=== PATIENT | female | born 2000 | race Two or more races ===

== ENCOUNTER 2025-07-22 10:10 | Inpatient (IN) | payer MEDICAID, SELFPAY ==
[2025-07-22] VITALS (8 sets, daily range): BP systolic 98–111; BP diastolic 60–73; PULSE 85–117; RESP 13–99; TEMP 36.6–38.9; O2SAT 95–100; BMI 25.6
--- NOTE | 2025-07-22 10:56 | PD.EDHA ---
ED Headache RME/HPI General Chief Complaint: Headache Stated Complaint: HEADACHE, VOMITING, DOUBLE VISION, WEAK, NECK PAIN Time Seen by Provider: 07/22/25 10:34 Arrival date/time: 07/22/25 10:10 Limitations: no limitations RME / HPI RME / HPI Narrative: DR. ROXANE DESOUZA ED EVALUATION: 24-year-old female with no prior history of migraines presents to the Emergency Department accompanied by her mother for evaluation of a severe throbbing headache ongoing for 6 days. The pain worsens even with minor movements, such as turning in bed. She reports associated nausea, vomiting, double vision, and severe neck pain. The double vision started this morning and is intermittent. She has trialed ibuprofen and migraine medications without relief, with the last dose of ibuprofen taken last night without improvement. She denies cough, runny nose, or recent travel. Her mother recently had COVID. Current medications include sertraline 50 mg and risperidone 50 mg. Related Data Home Medications ?Medication ?Instructions ?Recorded ?Confirmed risperidone 0.5 mg tablet 0.5 mg PO HS 07/23/25 07/23/25 sertraline 50 mg tablet 50 mg PO HS 07/23/25 07/23/25 Allergies Allergy/AdvReac Type Severity Reaction Status Date / Time No Known Allergies Allergy Verified 07/22/25 10:14 Review of Systems Review of Systems Systems Reviewed: All systems reviewed, normal except as documented Past Medical History Social History SMOKING STATUS: Never smoker SUBSTANCE USE: does not use ALCOHOL: Never ED Exam General Limitations: Present no limitations General appearance: Present alert and other (uncomfortable) Head Head exam: Present atraumatic, normocephalic and normal inspection Eye Eye exam: Present normal appearance, PERRL and EOMI ENT ENT exam: Present normal exam, normal oropharynx and mucous membranes moist Neck Neck exam: Present normal inspection, trachea midline and meningismus Chest Chest inspection: Present normal inspection and symmetric chest wall rise Respiratory Respiratory exam: Present normal lung sounds bilaterally Cardiovascular Cardiovascular exam: Present normal rhythm, tachycardia and normal heart sounds Abdominal Exam Abdominal exam: Present soft; Absent distention, tenderness, guarding, rebound or rigidity Extremities Exam Extremities exam: Present normal inspection and full ROM Back Exam Back exam: Present normal inspection and full ROM; Absent tenderness or paraspinal tenderness Neurological Exam Neurological exam: Present alert, oriented X3 and CN II-XII intact Psychiatric Psychiatric exam: Present normal affect Skin Skin exam: Present warm, dry, intact and normal color Course Quality Measures Current suspected stage: sepsis Possible source: unknown Blood cultures ordered: yes Antibiotic ordered: Yes Pertinent labs: 07/22/25 13:30 Lactic Acid 1.6 mMol/L (0.4-2.0) Procalcitonin 0.22 ng/ml (0.0-0.49) 1256: Sepsis alert initiated. Orders made at this time are congruent with ED Adult Sepsis Order List. Re-evaluation is to be completed. 1609: Fluids started. 1639: Sepsis reassessment performed consisting of lab review, vitals, physical exam including auscultation of heart, lungs, and visual evaluation of capillary refills, mucosal membranes and extremities. sepsis Orders Category Date Time Status Bedside Blood Glucose NOW Care 07/22/25 12:59 Completed Bedside COVID-19 Antigen Test NOW Care 07/22/25 11:15 Completed Educational Aid Q4H START 00 Care 07/22/25 12:59 Completed Insert IV NOW Care 07/22/25 12:59 Completed Miscellaneous Nursing Order NOW Care 07/22/25 14:25 Completed Strict Intake and Output Routine Care 07/22/25 12:[address] head/brain wo con Stat Exams 07/22/25 12:46 Completed XR chest 1V SEPSIS PROTOCOL Stat Exams 07/22/25 12:59 Completed Blood Culture (Lab) Stat Lab 07/22/25 13:00 Completed CBC Stat Lab 07/22/25 11:50 Completed CMP [Comprehensive Metabolic Panel] Stat Lab 07/22/25 11:50 Completed CSF Culture and Gram Stain Stat Lab 07/22/25 15:00 Completed Cell Count w Diff, CSF Stat Lab 07/22/25 15:00 Completed Drug Screen,Urine Stat Lab 07/22/25 11:10 Completed Glucose,CSF Stat Lab 07/22/25 15:00 Completed HCG,Qualitative Serum Stat Lab 07/22/25 11:50 Completed HSV-1&2 DNA, QN, CSF* Stat Lab 07/22/25 15:00 Completed Influenza A & B Rapid Panel Stat Lab 07/22/25 12:04 Completed Lactate (Lactic Acid) Stat Lab 07/22/25 13:30 Completed PT [Prothrombin Time with INR] Stat Lab 07/22/25 11:50 Completed Procalcitonin Stat Lab 07/22/25 13:30 Completed Protein Total,CSF Stat Lab 07/22/25 15:00 Completed UA, C/S IF [Urinalysis, C/S if Indicated] Stat Lab 07/22/25 11:10 Completed West Nile Virus (IgG,IgM) CSF Stat Lab 07/22/25 15:00 Completed Acetaminophen Ivpb [Ofirmev Inj] Med 07/22/25 12:05 Discontinued 1,000 mg in 100 ml IV STAT Acetaminophen Tab [Tylenol Tab] Med 07/22/25 11:16 Discontinued 650 mg PO X1 ONE Acyclovir Inj [Zovirax Inj] 600 mg Med 07/22/25 17:15 Discontinued Sodium Chloride 0.9% [Ns] 100 ml IV X1 Metoclopramide Inj [Reglan Inj] Med 07/22/25 11:16 Discontinued 5 mg IVP STAT STA Midazolam Inj [Versed Inj] Med 07/22/25 13:58 Discontinued 0.5 mg IVP X1 ONE Piper/Tazo Inj [Zosyn Inj] 4.5 gm Med 07/22/25 15:34 Discontinued Sodium Chloride 0.9% (Pop) [NS 0.9% mini bag] 100 ml IV X1 Ringers Lactated 1000 ml [Lactated Ringers] 1,000 ml Med 07/22/25 11:16 Discontinued IV 999 mls/hr Vancomycin Pharmacy to Dose Med 07/22/25 15:34 Discontinued 1 each IV STAT PRN Vancomycin/Ns 1 gm Ivpb 200 ml Med 07/22/25 15:45 Discontinued IV X1 cefTRIAXone [Rocephin] 2 gm Med 07/22/25 15:40 Discontinued SODIUM CHLORIDE 0.9% (Popper) [Ns 0.9% (P)] 50 ml IV STAT cefTRIAXone/D5w 1gm IV premix [Rocephin/D5w 1gm IV Med 07/22/25 15:34 Discontinued premix] 1 gm in 50 ml IV STAT EKG (RT) Stat RT 07/22/25 12:59 Draft Oxygen Delivery NOW RT 07/22/25 12:59 Completed Vital Signs Vital signs: Vital Signs Temperature 99.9 F 07/22/25 10:41 Pulse Rate 117 H 07/22/25 10:41 Respiratory Rate 18 07/22/25 10:41 Blood Pressure 107/73 07/22/25 10:41 Pulse Oximetry (%) 95 07/22/25 10:41 Oxygen Delivery Method Room Air 07/22/25 10:41 PROCEDURES: Procedure Comment Procedure Note: Lumbar Puncture Indication: Diagnostic evaluation of persistent headache Consent: Risks, benefits, and alternatives of lumbar puncture were discussed with the patient?s mother and daughter, including risk of bleeding, infection, post-LP headache, and pain. They verbalized understanding, were in agreement with the procedure, and signed consent. Procedure: The patient was placed in the lateral decubitus position. Standard sterile precautions were taken, including use of sterile gloves, mask, and drape. The lumbar area was prepped with antiseptic solution and draped in sterile fashion. Local anesthesia was achieved with infiltration of lidocaine. A spinal needle was introduced into the L4-L5 interspace. Findings: 3 cc of clear cerebrospinal fluid was obtained. The procedure was nontraumatic, and there were no immediate complications. Post-Procedure: The patient tolerated the procedure well. Dressing applied to puncture site. Specimens sent to laboratory for analysis. Estimated Blood Loss: None Complications: None Headache MDM Narrative MDM Narrative:: Patient is a 24-year-old female is in emergency room with concerns for 6 days of headache. Vital signs and exam as listed. Patient initially presented tachycardic however afebrile. While in the emergency department patient developed a fever to 102. Sepsis order set ordered. Patient also with neck pain with movement, worse with flexion of her neck concerning for possible intracranial hemorrhage. Ordered labs, CT brain, chest x-ray as well as offered medication for symptom relief. Labs with evidence of leukocytosis 17 , Left shift 94%. Patient with sodium 133, potassium 3.3, chloride 97. Patient received a liter of fluids. Lactic acid normal, no evidence of renal dysfunction, no transaminitis, bilirubin normal. Patient's not . Urinalysis with ketones, leuk esterase positive nitrite -12 squames 3 white blood cells no bacteria patient without dysuria less likely urinary tract infection. Drug screen negative, viral swabs negative for influenza. Chest x-ray unremarkable. Head CT without any acute intracranial abnormalities. EKG performed at 1318 today notable for sinus rhythm, short GA, normal QT, nonspecific T wave changes, not a cardiac alert. Given patient with headache, fever, neck pain and leukocytosis concern the patient may have meningitis. My interpretation: EKG performed at 1318 hours, sinus rhythm, rate 98, normal QT interval, non specific T wave changes, not a cardiac alert 1411: Risks, benefits, and alternatives of lumbar puncture were discussed with the patient?s mother and daughter, including risk of bleeding, infection, post-LP headache, and pain. They verbalized understanding, were in agreement with the procedure, and signed consent. See procedure note under procedures. LP performed w/o complication, patient tolerated procedure very well, throughout the procedure patient was able talk to us about her job . We were only able to obtain 2 tubes of CSF fluid approximately 3 mL. I talked to lab to confirm that our CSF studies could be completed. Provided patient with broad-spectrum antibiotics. CSF clear, colorless, 90 white blood cells, 10 red blood cells, 32% mononuclear cells, 68% PMNs, CSF glucose normal, CSF protein elevated. Concern that patient has viral meningitis. Patient is very somnolent, and believe it is important that she be evaluated by the hospital service. Discussed case with hospitalist Dr. Bardales, kindly accepted patient for admission I, Gris Humphrey, am scribing for and in the presence of Dr. Ballard. Patient data External records reviewed:: [facility] previous records Clinical information provided by:: patient and parent (mother) Social determinants that could affect healthcare access:: none Patient has the following chronic illnesses:: No prior history of migraines. Current medications include sertraline 50 mg and risperidone 50 mg. How is presenting disease/condition affected by chronic disease/condition?: uneffected by Evaluation data The following diagnostics were reviewed and interpreted by me:: lab results, radiology exam(s) and EKG tracing(s) (My interpretation: EKG performed at 1318 hours, sinus rhythm, rate 98, normal QT interval, non specific T wave changes, not a cardiac alert) Lab and/or radiology exams considered but not ordered:: none Interpretation Summary: See MDM narrative above. RADIOLOGY Procedure(s): XR chest 1V SEPSIS PROTOCOL Accession Number(s): [id number] cc: Alek Banda MD; Xochilt Young NP; Meche Ballard MD~ Examination: AP chest single view Technique one AP portable semiupright chest single view Date and time: July 22, 2025, 1308 hrs. Indications: Shortness of breath headache vomiting and weakness today. Findings: Normal heart size Lungs are clear. The osseous structures are intact Impression: No active disease Dictated By: Alek Banda MD Procedure(s): CT head/brain wo con Accession Number(s): [id number] cc: Alek Banda MD; Xochilt Young NP; Meche Ballard MD~ Examination: CT brain head without contrast. 2-D sagittal coronal reconstructions Date and time of exam:July 22, 2025, 1309 hrs., Comparison February 14, 2020 Indications: Headache vomiting dizziness beginning 6 days ago CTDI: vol (mGy):48 DLP: (mGycm):954 Technique: Multiple CT axial sections of the brain have been obtained, 5 mm slice thickness. Contrast has not been administered. 2-D sagittal, coronal reconstructions have been obtained Low dose protocols were performed. One or more of the following dose reduction techniques were used; automated exposure control, adjustment of the mA and/or KV according to patient size, use of iterative reconstruction technique. Findings: No significant ventricular enlargement. Intra-axial or extra-axial hemorrhage density is not seen. No mass effect or midline shift Basal cisterns are not remarkable. Fourth ventricle is midline. Cranial vault intact. Impression: Negative for acute hemorrhage, mass effect or midline shift Advise clinical correlation follow-up accordingly Dictated By: Alek Banda MD Medications / Prescriptions Medications or Prescriptions considered but not ordered:: none Medication administrations:: Medication Administration History Discontinued Medications Acetaminophen (Acetaminophen 325 Mg Tablet) 650 mg PO X1 ONE Stop: 07/22/25 11:17 Last Admin: 07/22/25 12:08 Dose: Not Given Documented By: VRS Non-Admin Reason: Nausea Acetaminophen (Acetaminophen 325 Mg Tablet) 1,000 mg PO Q6HR PRN PRN Reason: Fever >99.9 Stop: 08/21/25 19:17 Acetaminophen (Acetaminophen 325 Mg Tablet) 1,000 mg PO Q6HR PRN PRN Reason: Fever >100.4 and pain Stop: 08/21/25 19:17 Acetaminophen (Acetaminophen 500 Mg Tablet) 1,000 mg PO Q6HR PRN PRN Reason: fever >99.9 or pain 1-5 Stop: 08/22/25 01:13 Last Admin: 07/25/25 17:00 Dose: 1,000 mg Documented By: Admin: 07/25/25 05:55 Dose: 1,000 mg Documented By: Admin: 07/24/25 19:39 Dose: 1,000 mg Documented By: Admin: 07/24/25 12:58 Dose: 1,000 mg Documented By: Admin: 07/24/25 05:56 Dose: 1,000 mg Documented By: Admin: 07/23/25 20:40 Dose: 1,000 mg Documented By: Admin: 07/23/25 07:53 Dose: 1,000 mg Documented By: Admin: 07/23/25 01:19 Dose: 1,000 mg Documented By: STEVE Lactated Ringer's (Lactated Ringers) 1,000 mls @ 999 mls/hr IV .Q1H1M ONE Stop: 07/22/25 12:16 Last Infusion: 07/22/25 17:20 Dose: Infused Documented By: Admin: 07/22/25 11:45 Dose: 999 mls/hr Documented By: SKYLER Acetaminophen (Ofirmev Inj) 1,000 mg in 100 mls @ 250 mls/hr IV STAT STA Stop: 07/22/25 12:28 Last Infusion: 07/22/25 12:43 Dose: Infused Documented By: Admin: 07/22/25 12:14 Dose: 250 mls/hr Documented By: SKYLER Piperacillin Sod/Tazobactam (Sod 4.5 gm/ Sodium Chloride) 100 mls @ 200 mls/hr IV X1 ONE; Protocol Stop: 07/22/25 16:03 Last Admin: 07/22/25 17:19 Dose: Not Given Documented By: VRS Non-Admin Reason: Cancelled by Provider Ceftriaxone Sodium/Dextrose (Rocephin/D5w 1gm Iv Premix) 1 gm in 50 mls @ 100 mls/hr IV STAT STA Stop: 07/22/25 16:03 Last Admin: 07/22/25 17:19 Dose: Not Given Documented By: VRS Non-Admin Reason: Allergy Vancomycin/Sodium Chloride (Vancomycin/Ns 1 Gm Ivpb) 200 mls @ 120 mls/hr IV X1 ONE Stop: 07/22/25 17:24 Last Admin: 07/22/25 17:10 Dose: 120 mls/hr Documented By: DAMI Ceftriaxone Sodium 2 gm/ (Sodium Chloride) 50 mls @ 100 mls/hr IV STAT STA Stop: 07/22/25 16:09 Last Infusion: 07/22/25 17:18 Dose: Infused Documented By: Admin: 07/22/25 16:09 Dose: 100 mls/hr Documented By: ANGEL Acyclovir Sodium 600 mg/ (Sodium Chloride) 112 mls @ 112 mls/hr IV X1 ONE Stop: 07/22/25 18:14 Last Admin: 07/22/25 20:11 Dose: 112 mls/hr Documented By: JORDAN Acyclovir Sodium 599 mg/ (Sodium Chloride) 111.98 mls @ 100 mls/hr IV Q8HR TORRES Stop: 07/30/25 05:59 Ceftriaxone Sodium 2 gm/ (Sodium Chloride) 50 mls @ 100 mls/hr IV Q12HR TORRES Stop: 07/30/25 08:59 Last Infusion: 07/25/25 08:58 Dose: Infused Documented By: Admin: 07/25/25 08:28 Dose: 100 mls/hr Documented By: Infusion: 07/24/25 21:46 Dose: Infused Documented By: Admin: 07/24/25 21:16 Dose: 100 mls/hr Documented By: Infusion: 07/24/25 11:11 Dose: Infused Documented By: Infusion: 07/24/25 11:09 Dose: 100 mls/hr Documented By: Admin: 07/24/25 10:40 Dose: 100 mls/hr Documented By: Infusion: 07/23/25 22:05 Dose: Infused Documented By: Admin: 07/23/25 21:35 Dose: 100 mls/hr Documented By: Infusion: 07/23/25 08:46 Dose: Infused Documented By: Admin: 07/23/25 08:16 Dose: 100 mls/hr Documented By: ELAINE Acyclovir Sodium 599 mg/ (Sodium Chloride) 111.98 mls @ 100 mls/hr IV X1 ONE Stop: 07/22/25 20:37 Last Admin: 07/22/25 22:11 Dose: Not Given Documented By: ROSIO Non-Admin Reason: Duplicate Medication on eMAR Comments: dose given around 2029, see MAR Sodium Chloride (Ns) 1,000 mls @ 80 mls/hr IV .[id number] ONE Stop: 07/23/25 07:51 Last Admin: 07/22/25 20:14 Dose: 80 mls/hr Documented By: JORDAN Magnesium Sulfate (Magnesium Sulfate Ivpb) 2 gm in 50 mls @ 25 mls/hr IV X1 ONE Stop: 07/22/25 21:26 Last Admin: 07/22/25 20:17 Dose: 25 mls/hr Documented By: JORDAN Acyclovir Sodium 600 mg/ (Sodium Chloride) 112 mls @ 112 mls/hr IV Q8HR TORRES Stop: 07/23/25 15:00 Last Admin: 07/23/25 13:28 Dose: 112 mls/hr Documented By: Infusion: 07/23/25 06:14 Dose: Infused Documented By: Admin: 07/23/25 05:14 Dose: 112 mls/hr Documented By: ROSIO Vancomycin/Sodium Chloride (Vancomycin/Ns 750 Mg Ivpb) 750 mg in 150 mls @ 120 mls/hr IV Q8HR TORRES; Protocol Stop: 07/30/25 08:59 Last Admin: 07/23/25 09:05 Dose: 120 mls/hr Documented By: ELAINE Sodium Chloride (Ns) 500 mls @ 80 mls/hr IV .Q6H15M ONE Stop: 07/23/25 14:59 Last Admin: 07/23/25 09:17 Dose: 80 mls/hr Documented By: ELAINE Acyclovir Sodium 600 mg/ (Sodium Chloride) 112 mls @ 112 mls/hr IV Q8HR TORRES Stop: 07/30/25 21:59 Last Infusion: 07/25/25 15:47 Dose: Infused Documented By: Admin: 07/25/25 14:47 Dose: 112 mls/hr Documented By: Infusion: 07/25/25 06:10 Dose: Infused Documented By: Admin: 07/25/25 05:10 Dose: 112 mls/hr Documented By: Infusion: 07/24/25 22:17 Dose: Infused Documented By: Admin: 07/24/25 21:17 Dose: 112 mls/hr Documented By: Infusion: 07/24/25 15:39 Dose: Infused Documented By: Admin: 07/24/25 14:39 Dose: 112 mls/hr Documented By: Infusion: 07/24/25 08:13 Dose: Infused Documented By: Admin: 07/24/25 07:13 Dose: 112 mls/hr Documented By: Infusion: 07/24/25 01:57 Dose: Infused Documented By: Admin: 07/24/25 00:57 Dose: 112 mls/hr Documented By: OSITO Vancomycin/Sodium Chloride (Vancomycin/Ns 750 Mg Ivpb) 750 mg in 150 mls @ 120 mls/hr IV Q8HR TORRES; Protocol Stop: 07/30/25 10:29 Last Infusion: 07/24/25 07:07 Dose: Infused Documented By: Admin: 07/24/25 05:52 Dose: 120 mls/hr Documented By: Infusion: 07/24/25 00:17 Dose: Infused Documented By: Admin: 07/23/25 23:02 Dose: 120 mls/hr Documented By: Infusion: 07/23/25 14:43 Dose: Infused Documented By: Admin: 07/23/25 13:28 Dose: 120 mls/hr Documented By: Admin: 07/23/25 10:23 Dose: Not Given Documented By: ELAINE Non-Admin Reason: already gave nonadmit per pharm Vancomycin/Sodium Chloride (Vancomycin/Ns 1 Gm Ivpb) 200 mls @ 120 mls/hr IV Q8HR TORRES; Protocol Stop: 07/30/25 10:29 Last Infusion: 07/25/25 07:54 Dose: Infused Documented By: Admin: 07/25/25 06:13 Dose: 120 mls/hr Documented By: Infusion: 07/24/25 23:00 Dose: Infused Documented By: Admin: 07/24/25 21:19 Dose: 120 mls/hr Documented By: Infusion: 07/24/25 16:20 Dose: Infused Documented By: Admin: 07/24/25 14:39 Dose: 120 mls/hr Documented By: Infusion: 07/24/25 09:46 Dose: Infused Documented By: Admin: 07/24/25 08:05 Dose: 120 mls/hr Documented By: ELAINE Lactated Ringer's (Lactated Ringers) 1,000 mls @ 100 mls/hr IV .Q10H TORRES Stop: 07/26/25 05:44 Last Admin: 07/25/25 20:10 Dose: 100 mls/hr Documented By: Infusion: 07/25/25 20:10 Dose: Infused Documented By: Admin: 07/25/25 10:44 Dose: 100 mls/hr Documented By: CHARLENE Metoclopramide HCl (Metoclopramide Inj 5 Mg/Ml Vial 2 Ml) 5 mg IVP STAT STA; Protocol Stop: 07/22/25 11:17 Last Admin: 07/22/25 11:44 Dose: 5 mg Documented By: SKYLER Midazolam HCl (Midazolam Inj 1 Mg/Ml Vial 2 Ml) 0.5 mg IVP X1 ONE Stop: 07/22/25 13:59 Last Admin: 07/22/25 17:19 Dose: Not Given Documented By: SKYLER Non-Admin Reason: Cancelled by Provider Ondansetron HCl (Ondansetron Inj 2 Mg/Ml Inj 2 Ml) 4 mg IVP Q6H PRN; Protocol PRN Reason: NAUSEA OR VOMITING Stop: 08/21/25 18:30 Last Admin: 07/25/25 03:29 Dose: 4 mg Documented By: Admin: 07/22/25 20:07 Dose: 4 mg Documented By: JORDAN Ondansetron HCl (Ondansetron Odt 4 Mg Tabrap) 4 mg PO Q6HR PRN; Protocol PRN Reason: NAUSEA OR VOMITING Stop: 08/21/25 19:54 Pharmacy Consult (Vancomycin Pharmacy To Dose 1 Each Each) 1 each IV STAT PRN PRN Reason: CONSULT Stop: 08/21/25 15:33 Potassium Chloride (Potassium Chloride 20 Meq Tabcr) 40 meq PO X1 ONE Stop: 07/22/25 18:37 Last Admin: 07/22/25 20:24 Dose: 40 meq Documented By: JORDAN Sertraline HCl (Sertraline Hcl 25 Mg Tablet) 50 mg PO HS TORRES Stop: 08/22/25 20:59 Last Admin: 07/25/25 20:08 Dose: 50 mg Documented By: Admin: 07/24/25 21:16 Dose: 50 mg Documented By: Admin: 07/23/25 21:00 Dose: Not Given Documented By: CTF Non-Admin Reason: Patient Refused see above if any Consultations Consultation(s) initiated? (list below): Yes Consultation #1 (Physician, Specialty, Details): See MDM narrative above. Diagnosis Differential diagnosis headache: other (Meningitis, intracranial hemorrhage, and refractory migraine.) Most likely diagnosis given after review of the tests above:: See below under clinical impression Admission Indicated Admission indicated?: indicated Admission Request Was there a request for admission?: Yes Admission Attestation Admission request attestation: Discussed case with Hospitalist service regarding admission. Discussed patients ED course, exam findings, labs, and radiology results. The Hospitalist [agrees] to accept the patient for admission. Disposition Plan Disposition Plan: Admit Critical Care Time Critical Care Time Critical Care Time: Yes Total Critical Care Time (min.): 60 Attestation: The high probability of sudden, clinically significant deterioration in the patient?s condition required the highest level of my preparedness to intervene urgently. The services I provided to this patient were to treat and/or prevent clinically significant deterioration. Services included the following: chart data review, reviewing nursing notes and/or old charts, documentation time, loan consultant collaboration regarding findings and treatment options, medication orders and management, direct patient care, vital sign assessments and ordering, interpreting and reviewing diagnostic studies and lab tests. Aggregate critical care time includes only time during which I was engaged in work directly related to the patient?s care, as described above, whether at bedside or elsewhere in the Emergency Department. It did not include time spent performing other reported procedures or the services of residents, students, nurses or physician assistants. Discharge Plan Plan Patient Disposition: Admit Acute Care w/in Hospital Problem List Clinical Impression: Meningitis Patient/Caregiver Discharge Instructions Other Activity Instructions:: Follow-up with primary care physician within 5 days upon discharge Follow-up with neurology within 5 to 7 days upon discharge Follow-up with your primary care physician about CSF West Nile pending labs. Continue taking all other home medications as prescribed. Please come back to the ER if symptoms persist or worsen or if you develop new onset fevers.
--- NOTE | 2025-07-22 11:30 | PC.NURSE ---
PT IN WITH HAYS FOR THE LAST 6 DAYS, PT DID SEE PMD AND RECEIVED MEDS BUT WITH NO RELIEF. PT ALSO STATES THAT SHE HAS A FEVER AND WAS SENT HOME WITH MIGRAINE MEDS AND FLU MEDICATIONS. PT ALSO STATES TO HAVE VOMITING TODAY FOR THE LAST 6 DAYS. MOTHER AT BEDSIDE, PT AWAITING TO BE SEEN BY PROVIDER.
[2025-07-22 11:39] LABS: Collection Type, Urine Clean Catch
[2025-07-22] MEDS: METOCLOPRAMIDE INJ 5 MG/ML VIAL 2 ML IVP (11:44)
[2025-07-22] MEDS: RINGERS LACTATED 1000 ML 1,000 ML 999 ML IV (11:45)
[2025-07-22 12:08] LABS: Basophils # (Auto) 0.0 Thou/mm3 (0.0-0.2); Basophils % (Auto) 0 % (0-2.5); Eosinophils # (Auto) 0.0 Thou/mm3 (0.0-0.5); Eosinophils % (Auto) 0 % (0-10); Hematocrit 34.9 % (36.0-46.0); Hemoglobin 11.9 g/dL (12.0-16.0); Immature Granulocytes Auto 0.06 Thou/mm3 (0.00-0.00); Lymphocytes # (Auto) 0.3 Thou/mm3 (1.0-4.8); Lymphocytes % (Auto) 2 % (10-50); Mean Corpuscular HGB Conc 34.1 g/dl (31.0-37.0); Mean Corpuscular Hemoglobin 27.7 pg (25.0-35.0); Mean Corpuscular Volume 81 fL (80-100); Monocytes # (Auto) 0.6 Thou/mm3 (0.0-0.8); Monocytes % (Auto) 4 % (0-12); Neutrophils # (Auto) 16.0 Thou/mm3 (1.8-7.7); Neutrophils % (Auto) 94 % (37-80); Nucleated Red Blood Cell # 0.00 Thou/mm3 (0.00-0.00); Nucleated Red Blood Cell % 0 /100 WBC (0); Platelet Count 180 Thou/mm3 (140-440); RDW Standard Deviation 37.8 fL (36.4-46.3); Red Blood Count 4.29 Miln/mm3 (4.00-5.20); White Blood Count 17.0 Thou/mm3 (3.6-11.0)
[2025-07-22] MEDS: ACETAMINOPHEN IVPB 1,000 MG/100 ML VIAL 250 MG IV (12:14)
[2025-07-22 12:18] LABS: HCG,Qualitative Serum Negative
[2025-07-22 12:20] LABS: Amphetamine/Methamp Scrn,U Negative (Negative); Barbiturate Screen,Urine Negative (Negative); Benzodiazepines Screen,Urine Negative (Negative); Benzoylecgonine Screen, Ur Negative (Negative); Fentanyl Screen,Urine Negative (Negative); Opiate Screen,Urine Negative (Negative); THC Screen,Urine Negative (Negative)
[2025-07-22 12:20] LABS: INR 1.1 (0.9-1.3); Prothrombin Time 12.4 Seconds (9.0-12.2)
[2025-07-22 12:35] LABS: Alanine Aminotransferase 8 U/L (10-49); Albumin, Serum 4.7 gm/dL (3.5-5.0); Albumin/Globulin Ratio 1.8 (1.2-2.2); Alkaline Phosphatase 51 U/L (46-116); Anion Gap 12 (7-16); Aspartate Amino Transferase 14 U/L (0-34); BUN/Creatinine Ratio 10 Ratio (12-20); Bilirubin,Total 0.8 mg/dL (0.3-1.2); Blood Urea Nitrogen 10 mg/dL (9-23); Calcium 9.4 mg/dL (8.3-10.6); Calcium (Corrected) 9.4 mg/dL (8.5-10.1); Carbon Dioxide 24.3 mMol/L (20.0-31.0); Chloride 97 mMol/L (98-107); Creatinine (Component) 1.0 mg/dL (0.6-1.3); Globulin 2.6 gm/dL (2.3-3.5); Glucose 134 mg/dL (74-106); Osmolality,Calculated 267 (275-295); Potassium 3.3 mMol/L (3.4-5.1); Sodium 133 mMol/L (136-145); Total Protein 7.3 gm/dL (5.7-8.2); eGFR > 60 See Note
[2025-07-22 12:36] LABS: Influenza A Ag Negative; Influenza B Ag Negative
--- NOTE | 2025-07-22 12:46 | XR_ITS ---
Examination: CT brain head without contrast. 2-D sagittal coronal reconstructions Date and time of exam:July 22, 2025, 1309 hrs., Comparison February 14, 2020 Indications: Headache vomiting dizziness beginning 6 days ago CTDI: vol (mGy):48 DLP: (mGycm):954 Technique: Multiple CT axial sections of the brain have been obtained, 5 mm slice thickness. Contrast has not been administered. 2-D sagittal, coronal reconstructions have been obtained Low dose protocols were performed. One or more of the following dose reduction techniques were used; automated exposure control, adjustment of the mA and/or KV according to patient size, use of iterative reconstruction technique. Findings: No significant ventricular enlargement. Intra-axial or extra-axial hemorrhage density is not seen. No mass effect or midline shift Basal cisterns are not remarkable. Fourth ventricle is midline. Cranial vault intact. Impression: Negative for acute hemorrhage, mass effect or midline shift Advise clinical correlation follow-up accordingly
[2025-07-22 12:59] LABS: Bacteria,Urine 1+; Bilirubin,Urine Negative (Negative); Blood,Urine 2+ (Negative); Clarity,Urine Turbid (Clear/Hazy); Color,Urine Yellow (Lt Yel-Yel); Culture Indicated,Urine Contaminated; Glucose, Urine Negative (Negative); Ketones,Urine 2+ (Negative); Leukocyte Esterase,Urine Positive (Negative); Nitrite,Urine Negative (Negative); PH,Urine 6.0 (5.0-7.0); Protein,Urine 1+ (Neg - Trace); RBC,Urine 1 /hpf (0-3); Specific Gravity,Urine 1.021 (1.001-1.035); Squamous Epithelial Cell,Urine 12 /hpf (0-5); Urobilinogen,Urine Negative mg/dL (0.0-1.0); WBC,Urine 3 /hpf (0-5)
--- NOTE | 2025-07-22 12:59 | EKG_ITS ---
[facility] Test Date: 2025-07-22 Pat Name: DOM SALAS Department: Room: - Gender: Female [employer] U[employer]: : 2000 Requested By: Meche Thao Order Number: [id number] Reading MD: Meche Thao Measurements Intervals [place] Rate: 98 P: 36 IN: 113 QRS: 77 QRSD: 86 T: 13 QT: 328 QTc: 420 Interpretive Statements SINUS RHYTHM WITH SHORT IN INTERVAL POSSIBLE RIGHT VENTRICULAR CONDUCTION DELAY [RSR (QR) IN V1/V2] NONSPECIFIC T-WAVE ABNORMALITY Compared to ECG 02/14/2020 21:56:18 T-wave abnormality now present Sinus arrhythmia no longer present /store/S0/[id number].pdf
--- NOTE | 2025-07-22 12:59 | XR_ITS ---
Examination: AP chest single view Technique one AP portable semiupright chest single view Date and time: July 22, 2025, 1308 hrs. Indications: Shortness of breath headache vomiting and weakness today. Findings: Normal heart size Lungs are clear. The osseous structures are intact Impression: No active disease
--- NOTE | 2025-07-22 13:15 | PC.NURSE ---
Pt. signed consent for Lumbar Puncture with local anesthesia, performed by Dr. Ballard.
[2025-07-22 13:44] LABS: Lactate (Lactic Acid) 1.6 mMol/L (0.4-2.0)
[2025-07-22 14:15] LABS: Procalcitonin 0.22 ng/ml (0.0-0.49)
--- NOTE | 2025-07-22 14:30 | PC.NURSE ---
LUMBAR PUNCTURE PERFORMED AT BEDSIDE BY DR. BETTS. TIME OUT PERFORMED PRIOR TO LUMBAR PUNCTURE. 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 PT TOLERATED PROCEDURE WELL AND WAS LAID IN A SUPINE POSITION AFTER PROCEDURE.
[2025-07-22 15:37] LABS: Glucose,CSF 66 mg/dL (40-70); Protein Total,CSF 71 mg/dL (8-32)
[2025-07-22 15:47] LABS: CSF Cell Count Tube # Tube #2
[2025-07-22 15:48] LABS: CSF Color Colorless (Colorless); CSF Red Blood Cell 10 /cmm; CSF White Blood Cell 90 /cmm; CSF, Appearance Clear (Clear)
[2025-07-22 15:51] LABS: CSF Gram Stain Alert Gram Stain Completed
[2025-07-22] MEDS: cefTRIAXone 2 GM in SODIUM CHLORIDE 0.9% (Popper) 50 ML IV (16:09)
[2025-07-22 17:05] LABS: CSF Mononuclear 32 %; CSF Polynuclear WBC 68 %
[2025-07-22] MEDS: VANCOMYCIN/NS 1 GM IVPB 200 ML IV (17:10)
--- NOTE | 2025-07-22 17:55 | PC.NURSE ---
HOSPITALIST AT THE BEDSIDE.
--- NOTE | 2025-07-22 19:57 | ESHP_ITS ---
<Statement entered by Mayito Isbell MD - 07/23/25 07:24> Patient examined and case discussed with the team including attending physician. Note reviewed, I agree with the care plan as documented. Please refer to the note below for further details. - Mayito Isbell MD, PGY 3 Disclaimer: The document may contain phonetic/typographic errors due to voice recognition software. These errors are purely due to imperfections in the software program. Documentation for date of: 07/22/25 HPI History of Present Illness History of present illness: HPI: 24-year-old female with no significant past medical history presented to the ED on 07/22/2025 with 6 days of throbbing headaches, nausea, vomiting, fevers, and neck pain. She also reports double vision that started the day of presentation. She tried ibuprofen at home with little relief. She denied recent travel. Her mother recently had COVID. LP was performed in the ED that showed elevated protein. The patient was admitted for workup and management of her suspected acute meningitis. ED course: * Vitals on arrival: BP 107/73, pulse 117, respiratory rate 18, temp 99.9 and spiked to 102, satting at 95% on room air * Significant labs: WBC 17, hemoglobin 11.9, hematocrit 34.9, PT 12.4, sodium 133, potassium 3.3, chloride 97, glucose 134, osmolality 267. Urine positive for protein, ketones, blood, bacteria. CSF total protein 71, glucose 66, polynuclear WBC 68, mononuclear WBCs 32. Urine tox negative. Rapid influenza A and B negative. * Imaging: Head CT negative, chest x-ray negative, EKG showed sinus rhythm with a rate of 98, QTc 420. * In the ED the patient was given a liter of LR, acetaminophen, 2 g of ceftriaxone, was started on vancomycin, acyclovir, and maintenance fluids at 80 mL /h. History: * Past medical history: No significant past medical history, though the patient mentions that she takes Risperdal for what she believes is bipolar. * Surgical history: None. * Family history: No significant family history. * Social history: Denies alcohol, tobacco, or illicit drugs. 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 Most recent nonprotected sexual encounter was 3 months ago. * Home medications (per patient history and chart review): Sertraline 50 mg and risperidone 50 mg Review of Systems Review of Systems Narrative Review of Systems: Review of Systems: * General: Admits to fevers over the past 6 days * HEENT: Throbbing headache over the past 6 days, posterior neck pain same duration, double vision that started day of presentation * Cardiac: Denies chest pain or palpitations. * Pulmonary: Denies shortness of breath or cough. * GI: Nausea and vomiting over the past 6 days. Denies diarrhea, constipation, melena, or hematochezia. * : Denies dysuria, hematuria, frequency, or urgency. * MSK: Denies pain in the extremities, joints, or myalgias. * Neuro: Denies weakness, numbness, or speech difficulty. Exam Vital Signs Temp Pulse Resp BP Pulse Ox O2 Del Method 99 F 98 13 98/63 98 Room Air 07/22/25 18:08 07/22/25 18:08 07/22/25 18:08 07/22/25 18:08 07/22/25 18:08 07/22/25 18:08 Narrative Exam General: Uncomfortable, acutely ill young woman. Neurologic: GCS 15. Alert and oriented x3, no gross neurological deficit, and patient able to move all 4 extremities. HEENT: Brudzinski sign positive. Normocephalic, atraumatic. Heart: Tachycardic, regular rhythm,, normal S1 and S2, no murmurs. Lungs: Clear to auscultation bilaterally with no wheezing or crackles. Abdomen: Soft, nondistended, nontender, positive bowel sounds. No guarding or rebound tenderness. Extremities: No edema. 2+ radial and dorsalis pedis pulses bilaterally. Skin: Warm. Dry. No rash or ecchymoses. Results: Labs 07/23/25 04:58 07/23/25 04:58 Labs: Short CBC 07/22/25 Range/Units 11:50 WBC 17.0 H (3.6-11.0) Thou/mm3 Hgb 11.9 L (12.0-16.0) g/dL Hct 34.9 L (36.0-46.0) % Plt Count 180 (140-440) Thou/mm3 BMP 07/22/25 11:50 Sodium 133 L Potassium 3.3 L Chloride 97 L Carbon Dioxide 24.3 BUN 10 Creatinine 1.0 Glucose 134 H Calcium 9.4 Liver Function 07/22/25 Range/Units 11:50 Total Bilirubin 0.8 (0.3-1.2) mg/dL AST 14 (0-34) U/L ALT 8 L (10-49) U/L Alkaline Phosphatase 51 (46-116) U/L Albumin 4.7 (3.5-5.0) gm/dL Urine 07/22/25 Range/Units 11:10 Urine Color Yellow (Lt Yel-Yel) Urine Clarity Turbid A (Clear/Hazy) Urine pH 6.0 (5.0-7.0) Ur Specific [place] 1.021 (1.001-1.035) Urine Protein 1+ A (Neg - Trace) Urine Glucose (UA) Negative (Negative) Quality Measures Quality Measures sepsis Current suspected stage: ruled out Possible source: unknown Blood cultures ordered: yes Antibiotic ordered: Yes Medications Home Medications and Allergies Home Medications ?Medication ?Instructions ?Recorded ?Confirmed ?Type risperidone 0.5 mg tablet 0.5 mg PO HS 07/23/25 History sertraline 50 mg tablet 50 mg PO HS 07/23/25 5 History Allergies Allergy/AdvReac Type Severity Reaction Status Date / Time No Known Allergies Allergy Verified 07/22/25 10:14 Visit Medications Acetaminophen (Acetaminophen 325 Mg Tablet) 1,000 mg PO Q6HR PRN PRN Reason: Fever >99.9 Stop: 08/21/25 19:17 Acyclovir Sodium 599 mg/ (Sodium Chloride) 111.98 mls @ 100 mls/hr IV Q8HR TORRES Stop: 07/29/25 21:59 Ceftriaxone Sodium 2 gm/ (Sodium Chloride) 50 mls @ 100 mls/hr IV Q12HR TORRES Stop: 07/29/25 19:20 Acyclovir Sodium 599 mg/ (Sodium Chloride) 111.98 mls @ 100 mls/hr IV X1 ONE Stop: 07/22/25 20:37 Sodium Chloride (Ns) 1,000 mls @ 80 mls/hr IV .[id number] ONE Stop: 07/23/25 07:51 Magnesium Sulfate (Magnesium Sulfate Ivpb) 2 gm in 50 mls @ 25 mls/hr IV X1 ONE Stop: 07/22/25 21:26 Ondansetron HCl (Ondansetron Inj 2 Mg/Ml Inj 2 Ml) 4 mg IVP Q6H PRN; Protocol PRN Reason: NAUSEA OR VOMITING Stop: 08/21/25 18:30 Ondansetron HCl (Ondansetron Odt 4 Mg Tabrap) 4 mg PO Q6HR PRN; Protocol PRN Reason: NAUSEA OR VOMITING Stop: 08/21/25 19:54 Pharmacy Consult (Vancomycin Pharmacy To Dose 1 Each Each) 1 each IV STAT PRN PRN Reason: CONSULT Stop: 08/21/25 15:33 Discontinued Medications Acetaminophen (Acetaminophen 325 Mg Tablet) 650 mg PO X1 ONE Stop: 07/22/25 11:17 Last Admin: 07/22/25 12:08 Dose: Not Given Lactated Ringer's (Lactated Ringers) 1,000 mls @ 999 mls/hr IV .Q1H1M ONE Stop: 07/22/25 12:16 Last Infusion: 07/22/25 17:20 Dose: Infused Acetaminophen (Ofirmev Inj) 1,000 mg in 100 mls @ 250 mls/hr IV STAT STA Stop: 07/22/25 12:28 Last Infusion: 07/22/25 12:43 Dose: Infused Piperacillin Sod/Tazobactam (Sod 4.5 gm/ Sodium Chloride) 100 mls @ 200 mls/hr IV X1 ONE; Protocol Stop: 07/22/25 16:03 Last Admin: 07/22/25 17:19 Dose: Not Given Ceftriaxone Sodium/Dextrose (Rocephin/D5w 1gm Iv Premix) 1 gm in 50 mls @ 100 mls/hr IV STAT STA Stop: 07/22/25 16:03 Last Admin: 07/22/25 17:19 Dose: Not Given Vancomycin/Sodium Chloride (Vancomycin/Ns 1 Gm Ivpb) 200 mls @ 120 mls/hr IV X1 ONE Stop: 07/22/25 17:24 Last Admin: 07/22/25 17:10 Dose: 120 mls/hr Ceftriaxone Sodium 2 gm/ (Sodium Chloride) 50 mls @ 100 mls/hr IV STAT STA Stop: 07/22/25 16:09 Last Infusion: 07/22/25 17:18 Dose: Infused Acyclovir Sodium 600 mg/ (Sodium Chloride) 112 mls @ 112 mls/hr IV X1 ONE Stop: 07/22/25 18:14 Metoclopramide HCl (Metoclopramide Inj 5 Mg/Ml Vial 2 Ml) 5 mg IVP STAT STA; Protocol Stop: 07/22/25 11:17 Last Admin: 07/22/25 11:44 Dose: 5 mg Midazolam HCl (Midazolam Inj 1 Mg/Ml Vial 2 Ml) 0.5 mg IVP X1 ONE Stop: 07/22/25 13:59 Last Admin: 07/22/25 17:19 Dose: Not Given Potassium Chloride (Potassium Chloride 20 Meq Tabcr) 40 meq PO X1 ONE Stop: 07/22/25 18:37 Assessment & Plan Plan Summary: Ashlyn Murdock is a 24-year-old female with no significant past medical history who presented to the ED with 6 days of nausea, vomiting and fevers with double vision that started the day of presentation. LP in the emergency department showed elevated proteins in the CSF. She was admitted for management of her suspected meningitis. #Acute encephalopathy secondary to #Meningitis #Leukocytosis * Patient has had nausea, vomiting and fevers for several days with double vision and nuchal rigidity * CSF showed elevated protein * WBC 17 on arrival, likely reflective of infection * Pro-Rodriguez negative * Head CT negative Plan: * Acyclovir, ceftriaxone, and vancomycin started * Pending CSF viral panel, Gram stain and culture * Neurology consulted * Maintenance fluids * Pending MRI #Possible depression #Possible bipolar * Patient mentions that she takes Risperdal for bipolar. She mentions that she received this medication from the walk-in clinic but does not see a psychiatrist. * Per chart review the patient also takes sertraline. Plan: * Pending med rec, holding these medications for now #Chronic normocytic anemia * Hemoglobin 11.9 on arrival * Compared to previous hemoglobin values, this appears to be a chronic issue * MCV on the low side of normal at 81, has been lower previously Plan: * Pending iron panel #Hyponatremia #Hypokalemia #Hypochloremia * Likely due to several days of nausea and vomiting Plan: * Will encourage oral hydration and replete electrolytes Hospital Maintenance: DVT ppx: SCDs Diet: Regular diet IV lines: Peripheral IVs Code status: Full code Dispo: Patient admitted for encephalopathy secondary to suspected meningitis. Started on ceftriaxone, vancomycin, acyclovir. Pending viral CSF panel and Gram stain. Initially positive for elevated proteins. Patient was seen and discussed with my attending physician Dr. Jeffy BARROS and my senior resident Dr. Akilah BARROS PGY-3. Baltazar Alonso DO PGY-1. Attending Provider Attestation/Addendum I attest that I was physically present for the evaluation, physical examination, lab and imaging review of the patient with the residents. I discussed the case with the residents and agree with the findings and plans of care as documented above. After examination of the patient and review of the clinical data I feel that this patient needs admission to the hospital for further treatment/evaluation Lainey Bardales MD
[2025-07-22] MEDS: ONDANSETRON INJ 2 MG/ML INJ 2 ML 4 MG IVP (20:07)
[2025-07-22] MEDS: ACYCLOVIR INJ 600 MG in SODIUM CHLORIDE 0.9% 100 ML 112 MG IV (20:11)
[2025-07-22] MEDS: SODIUM CHLORIDE 0.9% 1000 ML 1,000 ML 80 ML IV (20:14)
[2025-07-22] MEDS: Magnesium Sulfate 2 GM Ivpb 2 GM/50 ML BAG IV (20:17)
--- NOTE | 2025-07-22 23:09 | PD.VPROG1 ---
Telemedicine visit statement This visit was conducted with the use of phone was obtained on 07/22/25 at 2309. Documentation for date of: 07/22/25 Subjective Subjective Interval history: Patient was admitted with headache, neck stiffness and low-grade fever suspicious for meningitis. Patient underwent lumbar puncture and the CSF analysis showed elevated protein, WBCs predominantly polymorphonuclear leukocytes. On empirical antibiotic therapy. Patient has not had any temperature spikes or worsening headaches after admission. She is able to keep food down with antinausea medication as. Virtual exam Vital Signs Temp Pulse Resp BP Pulse Ox O2 Del Method 97.9 F 99 25 H 102/60 99 Room Air 07/22/25 21:32 07/22/25 21:59 07/22/25 21:32 07/22/25 21:32 07/22/25 21:32 07/22/25 21:32 Objective Labs 07/22/25 11:50 07/22/25 11:50 Labs: Laboratory Results - last 24 hr 07/22/25 07/22/25 07/22/25 11:10 11:50 12:04 WBC 17.0 H RBC 4.29 Hgb 11.9 L Hct 34.9 L MCV 81 MCH 27.7 MCHC 34.1 RDW Std Deviation 37.8 Plt Count 180 Neut % (Auto) 94 H Lymph % (Auto) 2 L [place] % (Auto) 4 Eos % (Auto) 0 Baso % (Auto) 0 Neut # (Auto) 16.0 H Lymph # (Auto) 0.3 L [place] # (Auto) 0.6 Eos # (Auto) 0.0 Baso # (Auto) 0.0 Immature Gran # (Auto) 0.06 H Absolute Nucleated RBC 0.00 Immature Gran % 0 Nucleated RBC % 0 PT 12.4 H INR 1.1 Sodium 133 L Potassium 3.3 L Chloride 97 L Carbon Dioxide 24.3 Anion Gap 12 BUN 10 Creatinine 1.0 Estim Creat Clear Calc Not Performed. eGFR > 60 BUN/Creatinine Ratio 10 L Glucose 134 H Calculated Osmolality 267 L Lactic Acid Calcium 9.4 Corrected Calcium 9.4 Total Bilirubin 0.8 AST 14 ALT 8 L Alkaline Phosphatase 51 Total Protein 7.3 Albumin 4.7 Globulin 2.6 Albumin/Globulin Ratio 1.8 Procalcitonin HCG, Qual Negative Ur Collection Type Clean Catch Urine Color Yellow Urine Clarity Turbid A Urine pH 6.0 Ur Specific [place] 1.021 Urine Protein 1+ A Urine Glucose (UA) Negative Urine Ketones 2+ A Urine Blood 2+ A Urine Nitrite Negative Urine Bilirubin Negative Urine Urobilinogen (Auto) Negative Ur Leukocyte Esterase Positive Urine RBC 1 Urine WBC 3 Ur Squamous Epith Cells 12 H Urine Bacteria 1+ A Ur Culture Indicated? Contaminated CSF Appearance CSF Color CSF WBC CSF RBC CSF Cell Count Tube # CSF Mononuclear WBCs CSF Polynuclear WBCs CSF Glucose CSF Total Protein Urine Opiates Screen Negative Urine Fentanyl Screen Negative Ur Barbiturates Screen Negative U Amphetamin/Meth Scrn Negative U Benzodiazepines Scrn Negative U Cocaine Metab Screen Negative U Marijuana (THC) Screen Negative Influenza A (Rapid) Negative Influenza B (Rapid) Negative 07/22/25 07/22/25 13:30 15:00 WBC RBC Hgb Hct MCV MCH MCHC RDW Std Deviation Plt Count Neut % (Auto) Lymph % (Auto) [place] % (Auto) Eos % (Auto) Baso % (Auto) Neut # (Auto) Lymph # (Auto) [place] # (Auto) Eos # (Auto) Baso # (Auto) Immature Gran # (Auto) Absolute Nucleated RBC Immature Gran % Nucleated RBC % PT INR Sodium Potassium Chloride Carbon Dioxide Anion Gap BUN Creatinine Estim Creat Clear Calc eGFR BUN/Creatinine Ratio Glucose Calculated Osmolality Lactic Acid 1.6 Calcium Corrected Calcium Total Bilirubin AST ALT Alkaline Phosphatase Total Protein Albumin Globulin Albumin/Globulin Ratio Procalcitonin 0.22 HCG, Qual Ur Collection Type Urine Color Urine Clarity Urine pH Ur Specific [place] Urine Protein Urine Glucose (UA) Urine Ketones Urine Blood Urine Nitrite Urine Bilirubin Urine Urobilinogen (Auto) Ur Leukocyte Esterase Urine RBC Urine WBC Ur Squamous Epith Cells Urine Bacteria Ur Culture Indicated? CSF Appearance Clear CSF Color Colorless CSF WBC 90 CSF RBC 10 CSF Cell Count Tube # Tube #2 CSF Mononuclear WBCs 32 CSF Polynuclear WBCs 68 CSF Glucose 66 CSF Total Protein 71 H Urine Opiates Screen Urine Fentanyl Screen Ur Barbiturates Screen U Amphetamin/Meth Scrn U Benzodiazepines Scrn U Cocaine Metab Screen U Marijuana (THC) Screen Influenza A (Rapid) Influenza B (Rapid) Assessment & Plan Problem List (1) Meningitis: Status: Acute Assessment and plan: Continue with the current antibiotics, follow-up with the culture and sensitivity as it becomes. Continue with symptomatic therapy for headache, nausea and vomiting. Continue to follow the patient with primary team.
[2025-07-23] VITALS (10 sets, daily range): BP systolic 91–106; BP diastolic 60–76; PULSE 71–106; RESP 16–99; TEMP 36.3–39.5; O2SAT 96–100
[2025-07-23] MEDS: ACETAMINOPHEN 500 MG TABLET 1000 MG PO ×3 (01:19→20:40)
--- NOTE | 2025-07-23 02:12 | PC.NURSE ---
Pt arrived to unit via bed, on 3LNC, no obvious respirtory distress, GCS 15, denies pain and nausea at this time, will continue to monitor.
[2025-07-23] MEDS: ACYCLOVIR INJ 600 MG in SODIUM CHLORIDE 0.9% 100 ML 112 MG IV ×2 (05:14→13:28)
[2025-07-23 05:47] LABS: Basophils # (Auto) 0.0 Thou/mm3 (0.0-0.2); Basophils % (Auto) 0 % (0-2.5); Eosinophils # (Auto) 0.0 Thou/mm3 (0.0-0.5); Eosinophils % (Auto) 0 % (0-10); Hematocrit 29.9 % (36.0-46.0); Hemoglobin 10.1 g/dL (12.0-16.0); Immature Granulocytes Auto 0.04 Thou/mm3 (0.00-0.00); Lymphocytes # (Auto) 0.9 Thou/mm3 (1.0-4.8); Lymphocytes % (Auto) 9 % (10-50); Mean Corpuscular HGB Conc 33.8 g/dl (31.0-37.0); Mean Corpuscular Hemoglobin 27.7 pg (25.0-35.0); Mean Corpuscular Volume 82 fL (80-100); Monocytes # (Auto) 0.9 Thou/mm3 (0.0-0.8); Monocytes % (Auto) 8 % (0-12); Neutrophils # (Auto) 8.4 Thou/mm3 (1.8-7.7); Neutrophils % (Auto) 82 % (37-80); Nucleated Red Blood Cell # 0.00 Thou/mm3 (0.00-0.00); Nucleated Red Blood Cell % 0 /100 WBC (0); Platelet Count 146 Thou/mm3 (140-440); RDW Standard Deviation 38.4 fL (36.4-46.3); Red Blood Count 3.65 Miln/mm3 (4.00-5.20); White Blood Count 10.2 Thou/mm3 (3.6-11.0)
[2025-07-23 06:25] LABS: Ferritin 89 ng/mL (7.3-270.7); Iron 24 mcg/dL (50-170)
[2025-07-23 06:37] LABS: Alanine Aminotransferase 7 U/L (10-49); Albumin, Serum 3.8 gm/dL (3.5-5.0); Albumin/Globulin Ratio 1.8 (1.2-2.2); Alkaline Phosphatase 44 U/L (46-116); Anion Gap 11 (7-16); Aspartate Amino Transferase 12 U/L (0-34); BUN/Creatinine Ratio 7 Ratio (12-20); Bilirubin,Total 0.6 mg/dL (0.3-1.2); Blood Urea Nitrogen 5 mg/dL (9-23); Calcium 8.9 mg/dL (8.3-10.6); Calcium (Corrected) 9.1 mg/dL (8.5-10.1); Carbon Dioxide 21.5 mMol/L (20.0-31.0); Chloride 103 mMol/L (98-107); Creatinine (Component) 0.7 mg/dL (0.6-1.3); Estimated Creatinine Clearance 100.8 mL/min (>60); Globulin 2.1 gm/dL (2.3-3.5); Glucose 96 mg/dL (74-106); Magnesium 2.2 mg/dL (1.6-2.6); Osmolality,Calculated 267 (275-295); Phosphorous 3.4 mg/dL (2.4-5.1); Potassium 3.5 mMol/L (3.4-5.1); Sodium 135 mMol/L (136-145); Total Protein 5.9 gm/dL (5.7-8.2); eGFR > 60 See Note
[2025-07-23] MEDS: cefTRIAXone 2 GM in SODIUM CHLORIDE 0.9% (Popper) 50 ML IV ×2 (08:16→21:35)
--- NOTE | 2025-07-23 09:01 | PC.NURSE ---
Spoke with Binta from the lab at 0845. Binta stated that the lab had only enouh CSF drawn from the patient's lab yesterday to run the [place] and Herpes test or Cocci, not all three test like ordered. Spoke with Dr. Padilla and he instructed to do West Nile and herpes. This nurse called Binta from lab back and told her what Dr. Padilla requested.
[2025-07-23] MEDS: VANCOMYCIN/NS 750 MG IVPB 750 MG/150 ML BAG 120 MG IV ×3 (09:05→23:02)
[2025-07-23] MEDS: SODIUM CHLORIDE 0.9% 500 ML 500 ML 80 ML IV (09:17)
--- NOTE | 2025-07-23 12:04 | PC.SS ---
SS spoke to patient who is alert/oriented. Patient was able to verify demographics. Patient was admitted for meningitis. Patient states she resides with her mother, Tran. Patient is independent with ADL's. No DME. PCP: [facility]. Last appt. was last week. Patient to d/c home. alt medical decision maker: Tran Orellana,
--- NOTE | 2025-07-23 13:45 | ESPR_ITS ---
<Statement entered by Loi Padilla MD - 07/23/25 16:53> No acute overnight events. Patient seen and examined at bedside and appears to be in moderate discomfort due to headache. However, she states that her symptoms have improved since being admitted. CSF studies show elevated protein and WBC but clear in appearance and pending HSV and West Nile studies. Vital signs stable, CBC shows improvement in leukocytosis from 17 to 10, CHEM panel shows improvement in hypokalemia but otherwise unremarkable. Blood and CSF cultures show no growth to date. Will continue acyclovir, vancomycin, and ceftriaxone. ----- Note reviewed and agree with care plan as documented. Please refer to the note below for further details. Plan discussed with attending physician Dr. Jeffy Padilla MD PGY-2 Internal Medicine Documentation for date of: 07/23/25 Subjective Subjective Interval history: Overnight no events. Pt continues to endorse headache 10/10, sharp, otherwise denies fever, n/v/d, chest pain, abdominal pain, chills, rash. Pt is able to hold food down but reports loss of appetite. Exam Vital Signs Temp Pulse Resp BP Pulse Ox O2 Del Method 97.4 F 78 19 91/61 96 Room Air 07/23/25 12:00 07/23/25 12:00 07/23/25 12:00 07/23/25 12:00 07/23/25 12:00 07/23/25 12:00 Narrative Exam General: Uncomfortable, acutely ill young woman. Neurologic: GCS 15. Alert and oriented x3, no gross neurological deficit, and patient able to move all 4 extremities. HEENT: Brudzinski sign positive. Normocephalic, atraumatic. Heart: Regular rate/rhythm,, normal S1 and S2, no murmurs. Lungs: Clear to auscultation bilaterally with no wheezing or crackles. Abdomen: Soft, nondistended, nontender, positive bowel sounds. No guarding or rebound tenderness. Extremities: No edema. 2+ radial and dorsalis pedis pulses bilaterally. Skin: Warm. Dry. No rash or ecchymoses. Objective Labs 07/23/25 04:58 07/23/25 04:58 Labs: Laboratory Results - last 24 hr 07/22/25 07/22/25 07/23/25 13:30 15:00 04:58 WBC 10.2 D RBC 3.65 L Hgb 10.1 L Hct 29.9 L MCV 82 MCH 27.7 MCHC 33.8 RDW Std Deviation 38.4 Plt Count 146 D Neut % (Auto) 82 H Lymph % (Auto) 9 L [place] % (Auto) 8 Eos % (Auto) 0 Baso % (Auto) 0 Neut # (Auto) 8.4 H Lymph # (Auto) 0.9 L [place] # (Auto) 0.9 H Eos # (Auto) 0.0 Baso # (Auto) 0.0 Immature Gran # (Auto) 0.04 H Absolute Nucleated RBC 0.00 Immature Gran % 0 Nucleated RBC % 0 Sodium 135 L Potassium 3.5 Chloride 103 Carbon Dioxide 21.5 Anion Gap 11 BUN 5 L Creatinine 0.7 Estim Creat Clear Calc 100.8 eGFR > 60 BUN/Creatinine Ratio 7 L Glucose 96 Calculated Osmolality 267 L Lactic Acid 1.6 Calcium 8.9 Corrected Calcium 9.1 Phosphorus 3.4 Magnesium 2.2 Iron 24 L Ferritin 89 Total Bilirubin 0.6 AST 12 ALT 7 L Alkaline Phosphatase 44 L Total Protein 5.9 Albumin 3.8 D Globulin 2.1 L Albumin/Globulin Ratio 1.8 Procalcitonin 0.22 CSF Appearance Clear CSF Color Colorless CSF WBC 90 CSF RBC 10 CSF Cell Count Tube # Tube #2 CSF Mononuclear WBCs 32 CSF Polynuclear WBCs 68 CSF Glucose 66 CSF Total Protein 71 H Quality Measures Quality Measures sepsis Current suspected stage: ruled out Possible source: unknown Blood cultures ordered: yes Antibiotic ordered: Yes Assessment & Plan Assessment Current Active Medications: Generic Name Dose Route Start Last Admin Trade Name Charlesq PRN Reason Stop Dose Admin Acetaminophen 1,000 mg 07/23/25 01:14 07/23/25 07:53 Acetaminophen 500 Mg Tablet PO 08/22/25 01:13 1,000 mg Q6HR PRN Administration fever >99.9 or pain 1-5 Ceftriaxone Sodium 2 gm/ 50 mls @ 100 mls/hr 07/23/25 09:00 07/23/25 08:16 Sodium Chloride IV 07/30/25 08:59 100 mls/hr Q12HR TORRES Administration Acyclovir Sodium 600 mg/ 112 mls @ 112 mls/hr 07/23/25 06:00 07/23/25 13:28 Sodium Chloride IV 07/23/25 15:00 112 mls/hr Q8HR TORRES Administration Sodium Chloride 500 mls @ 80 mls/hr 07/23/25 08:45 07/23/25 09:17 Ns IV 07/23/25 14:59 80 mls/hr .Q6H15M ONE Administration Acyclovir Sodium 600 mg/ 112 mls @ 112 mls/hr 07/23/25 22:00 Sodium Chloride IV 07/30/25 21:59 Q8HR TORRES Vancomycin/Sodium Chloride 750 mg in 150 mls @ 120 mls/hr 07/23/25 10:30 07/23/25 13:28 Vancomycin/Ns 750 Mg Ivpb IV 07/30/25 10:29 120 mls/hr Q8HR TORRES Administration Protocol Ondansetron HCl 4 mg 07/22/25 18:31 07/22/25 20:07 Ondansetron Inj 2 Mg/Ml Inj 2 Ml IVP 08/21/25 18:30 4 mg Q6H PRN Administration NAUSEA OR VOMITING Protocol Pharmacy Consult 1 each 07/22/25 15:34 Vancomycin Pharmacy To Dose 1 Each Each IV 08/21/25 15:33 STAT PRN CONSULT Plan Ashlyn Murdock is a 24-year-old female with no significant PMH presented to the ED with 6 days of nausea, vomiting and fevers with double vision that started the day of presentation. LP in the emergency department showed elevated proteins in the CSF. She was admitted for management of her suspected meningitis. #Acute encephalopathy secondary to #Meningitis #Leukocytosis Today pt reports no n/v/d, fever, double vision. Continues to feel nuchal rigidity, meningitic pain of neck, severe headache, however otherwise improving slightly symptomatically. CSF shows elevated protein, CSF gram stain showed no growth. Most likely at this stage aseptic meningitis vs bacterial vs fungal. Head CT in ED negative. - CSF and blood cx pending - Cont Acyclovir, Rocephin, Vancomycin - Neuro Dr. Huddleston consulted, appreciated. Per recs continue anti- microbials/virals. - Maintenence fluids - MRI pending. #Possible depression #Possible bipolar Patient describes previously seeing psychiatrist who prescribed Sertraline and Risperidone for some combination of BPD and depression, however mentions the medications were filled by a PCP in a walk in clinic. History unreliable, unlikely an SSRI would be prescribed in setting of BPD however pt reports past manic episodes. - Start home Sertraline, hold risperidone for now. #Chronic normocytic anemia Hgb 10.1 today from 11.9 on admit. Appears to be chronic per chart review. Per iron panel 07/23/25 pt has low iron 24 w/ normal ferritin 89. - Most likely anemia is combination of chronic issue and fluid administration this admit. Will monitor for now, trend CBC in AM #Hyponatremia #Hypokalemia (resolved) #Hypochloremia (resolved) Electrolyte imbalance likely 2/2 days of n/v. - Encourage hydration orally, replete as necessary. Hospital management: Disposition: Monitor improvement on current abx/acyclovir, pending cx. Fluids: NaCl 80mls/hr Diet: no restriction Lines: peripheral IVs DVT prophylaxis: SCDs CODE STATUS: full code ----- Plan discussed with attending physician Dr. Jeffy Sears, Medical Student SI Attending Provider Attestation/Addendum I attest that I was physically present for the evaluation, physical examination, lab and imaging review of the patient with the residents. I discussed the case with the residents and agree with the findings and plans of care as documented above. Patient seen and examined at bedside this morning. States that her neck pain has slightly improved compared to yesterday. She now has head and neck pain if she moves her head. Denies any fever, chills, nausea or vomiting. States that her appetite is not great but she has been able to tolerate diet. Continues to be on acyclovir, Rocephin and vancomycin, CSF viral studies are pending, CSF Gram stain was negative culture is pending. Neurology following closely, appreciate recommendations. Vital signs are stable, lab results show improvement in WBC, rest of the labs are stable as well. Lainey Bardales MD
--- NOTE | 2025-07-23 21:10 | PC.NURSE ---
Dr. Huddleston called rn- Updated re current pt condition status.
[2025-07-23 22:17] LABS: Vancomycin,Trough 9.4 mcg/mL (5.0-10.0)
--- NOTE | 2025-07-23 22:48 | PD.NEUROPROG ---
Documentation for date of: 07/23/25 Subjective Subjective Interval history: Patient was seen in [facility] today at the bedside, continues to have fever spikes, headache nausea and neck pain. Exam - Neurology Vital Signs Temp Pulse Resp BP Pulse Ox O2 Del Method 102.7 F H 77 18 106/76 99 Room Air 07/23/25 20:40 07/23/25 20:00 07/23/25 20:00 07/23/25 20:00 07/23/25 20:00 07/23/25 20:00 Narrative Exam GENERAL APPEARANCE: Well hydrated, well-nourished in no acute distress. HEENT: Normocephalic, atraumatic, extraocular movements intact. Pupils: Equal reacting to light and accommodation NECK: Supple, no JVD or bruits. CARDIOVASULAR: Heart: S1, S2 heard, regular without S3-S4 or murmur no rubs or gallops. LUNGS/CHEST: Clear to auscultation bilaterally. No rails, rhonchi, or wheezing. Normal inspection. ABDOMEN: Soft, nontender, with normal bowel sounds. No pulsatile masses. No rebound, rigidity, or guarding. Normal inspection and palpation. EXTREMITIES: Normal inspection and palpation. No edema, clubbing or cyanosis. SKIN: Warm and dry without rashes. Normal inspection. MUSCULOSKELETAL: No cervical, thoracic, lumbar or midline bony tenderness. Normal inspection. NEURO: Alert, awake and oriented x3. Cranial nerves: II through XII grossly intact. Speech and language: Normal with no dysarthria or dysphasia. Motor system: Tone and bulk: Normal: Strength: 5 out of 5 in all 4 extremities; No pronator drift noted. Deep tendon reflexes: 2+ bilaterally symmetrical. Plantar reflex: Downgoing bilaterally. Sensory system: Intact to all modalities of sensation bilaterally. Coordination: Intact to [id number] and [id number] test bilaterally. No ataxia, no dysmetria, or dysdiadochokinesia noted. No intention tremors noted. Gait: Not tested. She does have signs of meningeal irritation. PSYCHIATRIC: Normal mood and affect. Objective Labs 07/23/25 04:58 07/23/25 04:58 Labs: Laboratory Results - last 24 hr 07/23/25 07/23/25 04:58 21:25 WBC 10.2 D RBC 3.65 L Hgb 10.1 L Hct 29.9 L MCV 82 MCH 27.7 MCHC 33.8 RDW Std Deviation 38.4 Plt Count 146 D Neut % (Auto) 82 H Lymph % (Auto) 9 L [place] % (Auto) 8 Eos % (Auto) 0 Baso % (Auto) 0 Neut # (Auto) 8.4 H Lymph # (Auto) 0.9 L [place] # (Auto) 0.9 H Eos # (Auto) 0.0 Baso # (Auto) 0.0 Immature Gran # (Auto) 0.04 H Absolute Nucleated RBC 0.00 Immature Gran % 0 Nucleated RBC % 0 Sodium 135 L Potassium 3.5 Chloride 103 Carbon Dioxide 21.5 Anion Gap 11 BUN 5 L Creatinine 0.7 Estim Creat Clear Calc 100.8 eGFR > 60 BUN/Creatinine Ratio 7 L Glucose 96 Calculated Osmolality 267 L Calcium 8.9 Corrected Calcium 9.1 Phosphorus 3.4 Magnesium 2.2 Iron 24 L Ferritin 89 Total Bilirubin 0.6 AST 12 ALT 7 L Alkaline Phosphatase 44 L Total Protein 5.9 Albumin 3.8 D Globulin 2.1 L Albumin/Globulin Ratio 1.8 Vancomycin Trough 9.4 Assessment & Plan Assessment and plan (1) Meningitis: Status: Acute Assessment and plan: She most likely has viral meningitis So far CSF analysis is consistent with that, follow-up with final CSF culture Continue with the current antibiotics until the culture comes back negative and Tylenol as needed
--- NOTE | 2025-07-23 23:35 | PC.NURSE ---
T=101.9- Cooling measures applied.
[2025-07-24] VITALS (13 sets, daily range): BP systolic 83–128; BP diastolic 57–78; PULSE 65–162; RESP 13–99; TEMP 36.2–38.8; O2SAT 94–99
[2025-07-24] MEDS: ACYCLOVIR INJ 600 MG in SODIUM CHLORIDE 0.9% 100 ML 112 MG IV ×4 (00:57→21:17)
--- NOTE | 2025-07-24 01:15 | PC.NURSE ---
monitor color television console monitor called rn re cv=[id number]- Pt in restroom- Advised pt to use bedside commode next time and not walk to bathroom- Pt verbalized understanding.
[2025-07-24 05:33] LABS: Basophils # (Auto) 0.0 Thou/mm3 (0.0-0.2); Basophils % (Auto) 0 % (0-2.5); Eosinophils # (Auto) 0.0 Thou/mm3 (0.0-0.5); Eosinophils % (Auto) 0 % (0-10); Hematocrit 28.9 % (36.0-46.0); Hemoglobin 9.9 g/dL (12.0-16.0); Immature Granulocytes Auto 0.05 Thou/mm3 (0.00-0.00); Lymphocytes # (Auto) 0.9 Thou/mm3 (1.0-4.8); Lymphocytes % (Auto) 14 % (10-50); Mean Corpuscular HGB Conc 34.3 g/dl (31.0-37.0); Mean Corpuscular Hemoglobin 27.8 pg (25.0-35.0); Mean Corpuscular Volume 81 fL (80-100); Monocytes # (Auto) 0.6 Thou/mm3 (0.0-0.8); Monocytes % (Auto) 9 % (0-12); Neutrophils # (Auto) 5.1 Thou/mm3 (1.8-7.7); Neutrophils % (Auto) 76 % (37-80); Nucleated Red Blood Cell # 0.00 Thou/mm3 (0.00-0.00); Nucleated Red Blood Cell % 0 /100 WBC (0); Platelet Count 157 Thou/mm3 (140-440); RDW Standard Deviation 38.2 fL (36.4-46.3); Red Blood Count 3.56 Miln/mm3 (4.00-5.20); White Blood Count 6.7 Thou/mm3 (3.6-11.0)
[2025-07-24] MEDS: VANCOMYCIN/NS 750 MG IVPB 750 MG/150 ML BAG 120 MG IV (05:52)
[2025-07-24] MEDS: ACETAMINOPHEN 500 MG TABLET 1000 MG PO ×3 (05:56→19:39)
[2025-07-24 06:22] LABS: Alanine Aminotransferase < 7 U/L (10-49); Albumin, Serum 3.8 gm/dL (3.5-5.0); Albumin/Globulin Ratio 1.8 (1.2-2.2); Alkaline Phosphatase 43 U/L (46-116); Anion Gap 10 (7-16); Aspartate Amino Transferase < 8 U/L (0-34); BUN/Creatinine Ratio 7 Ratio (12-20); Bilirubin,Total 0.4 mg/dL (0.3-1.2); Blood Urea Nitrogen < 5 mg/dL (9-23); Calcium 8.9 mg/dL (8.3-10.6); Calcium (Corrected) 9.1 mg/dL (8.5-10.1); Carbon Dioxide 22.2 mMol/L (20.0-31.0); Chloride 101 mMol/L (98-107); Creatinine (Component) 0.7 mg/dL (0.6-1.3); Estimated Creatinine Clearance 100.8 mL/min (>60); Globulin 2.1 gm/dL (2.3-3.5); Glucose 88 mg/dL (74-106); Osmolality,Calculated 262 (275-295); Potassium 3.5 mMol/L (3.4-5.1); Sodium 133 mMol/L (136-145); Total Protein 5.9 gm/dL (5.7-8.2); eGFR > 60 See Note
--- NOTE | 2025-07-24 07:42 | PC.NURSE ---
Vanco medication is due at 0715 and its not on the floor. Called pharmacy to check status and they said it would be on the floor shortly.
[2025-07-24] MEDS: VANCOMYCIN/NS 1 GM IVPB 200 ML IV ×3 (08:05→21:19)
--- NOTE | 2025-07-24 09:23 | ESPR_ITS ---
<Statement entered by Loi Padilla MD - 07/24/25 15:16> No acute overnight events. Seen and examined at bedside and patient states that she overall feels the same compared to yesterday. Informed by nursing staff that patient heart rate increases to the 170s with minimal movement but patient states that she is not short of breath, denies palpitations, chest discomfort, or lightheadedness. Ordered orthostatic vitals for further evaluation. Otherwise we will continue with ceftriaxone, vancomycin, and acyclovir but suspect viral meningitis given CSF study findings. Will continue to follow-up with neurology recommendations. Of note, patient was febrile overnight and given Tylenol. ----- Note reviewed and agree with care plan as documented. Please refer to the note below for further details. Plan discussed with attending physician Dr. Flavio Padilla MD PGY-2 Internal Medicine Documentation for date of: 07/24/25 Subjective Subjective Interval history: Overnight pt had fever to highest 103.1 that resolved this morning following tylenol administration. Also heart rate reached 170s per nurse after the patient stood up to use bathroom, HR also normal this morning in 90s. Patient seen and examined at bedside and appears to be in moderate discomfort due to headache with associated nausea and vomiting overnight, reports condition about the same as yesterday. However reports resolution of neck pain and nuchal rigidity. CSF studies thus far show elevated protein and WBC but clear in appearance and pending HSV and West Nile studies. Vital signs stable, leukocytosis has resolved. Blood and CSF cultures show no growth to date. Pt has only been able to drink water and eat some grapes brought by family, otherwise has not eaten. Pt also endorses fatigue, SOB, loss of appetite, otherwise denies chest pain, abdominal pain, chills, rash, palpitations. ROS negative except as noted above. Exam Vital Signs Temp Pulse Resp BP Pulse Ox O2 Del Method 97.6 F 90 20 103/75 95 Room Air 07/24/25 08:00 07/24/25 08:00 07/24/25 08:00 07/24/25 08:00 07/24/25 08:00 07/24/25 08:00 Narrative Exam General: Uncomfortable, acutely ill young woman. Neurologic: GCS 15. Alert and oriented x3, no gross neurological deficit, and patient able to move all 4 extremities. HEENT: Normocephalic, atraumatic. Heart: Regular rate/rhythm, normal S1 and S2, no murmurs. Lungs: Clear to auscultation bilaterally with no wheezing or crackles. Abdomen: Soft, nondistended, nontender, positive bowel sounds. No guarding or rebound tenderness. Extremities: No edema. 2+ radial and dorsalis pedis pulses bilaterally. Skin: Warm. Dry. No rash or ecchymoses. Objective Labs 07/25/25 05:38 07/25/25 05:38 Labs: Laboratory Results - last 24 hr 07/23/25 07/24/25 21:25 04:25 WBC 6.7 RBC 3.56 L Hgb 9.9 L Hct 28.9 L MCV 81 MCH 27.8 MCHC 34.3 RDW Std Deviation 38.2 Plt Count 157 Neut % (Auto) 76 Lymph % (Auto) 14 [place] % (Auto) 9 Eos % (Auto) 0 Baso % (Auto) 0 Neut # (Auto) 5.1 Lymph # (Auto) 0.9 L [place] # (Auto) 0.6 Eos # (Auto) 0.0 Baso # (Auto) 0.0 Immature Gran # (Auto) 0.05 H Absolute Nucleated RBC 0.00 Immature Gran % 1 H Nucleated RBC % 0 Sodium 133 L Potassium 3.5 Chloride 101 Carbon Dioxide 22.2 Anion Gap 10 BUN < 5 L Creatinine 0.7 Estim Creat Clear Calc 100.8 eGFR > 60 BUN/Creatinine Ratio 7 L Glucose 88 Calculated Osmolality 262 L Calcium 8.9 Corrected Calcium 9.1 Total Bilirubin 0.4 AST < 8 ALT < 7 L Alkaline Phosphatase 43 L Total Protein 5.9 Albumin 3.8 Globulin 2.1 L Albumin/Globulin Ratio 1.8 Vancomycin Trough 9.4 Quality Measures Quality Measures sepsis Current suspected stage: ruled out Possible source: unknown Blood cultures ordered: yes Antibiotic ordered: Yes Assessment & Plan Assessment Current Active Medications: Generic Name Dose Route Start Last Admin Trade Name Freq PRN Reason Stop Dose Admin Acetaminophen 1,000 mg 07/23/25 01:14 07/24/25 05:56 Acetaminophen 500 Mg Tablet PO 08/22/25 01:13 1,000 mg Q6HR PRN Administration fever >99.9 or pain 1-5 Ceftriaxone Sodium 2 gm/ 50 mls @ 100 mls/hr 07/23/25 09:00 07/23/25 21:35 Sodium Chloride IV 07/30/25 08:59 100 mls/hr Q12HR TORRES Administration Acyclovir Sodium 600 mg/ 112 mls @ 112 mls/hr 07/23/25 22:00 07/24/25 07:13 Sodium Chloride IV 07/30/25 21:59 112 mls/hr Q8HR TORRES Administration Vancomycin/Sodium Chloride 200 mls @ 120 mls/hr 07/24/25 07:15 07/24/25 08:05 Vancomycin/Ns 1 Gm Ivpb IV 07/30/25 10:29 120 mls/hr Q8HR TORRES Administration Ondansetron HCl 4 mg 07/22/25 18:31 07/22/25 20:07 Ondansetron Inj 2 Mg/Ml Inj 2 Ml IVP 08/21/25 18:30 4 mg Q6H PRN Administration NAUSEA OR VOMITING Protocol Pharmacy Consult 1 each 07/22/25 15:34 Vancomycin Pharmacy To Dose 1 Each Each IV 08/21/25 15:33 STAT PRN CONSULT Sertraline HCl 50 mg 07/23/25 21:00 07/23/25 21:00 Sertraline Hcl 25 Mg Tablet PO 08/22/25 20:59 Not Given HS TORRES Plan Ashlyn Murdock is a 24-year-old female with no significant PMH presented to the ED with 6 days of nausea, vomiting and fevers with double vision that started the day of presentation. LP in the emergency department showed elevated proteins in the CSF. She was admitted for management of her suspected meningitis. #Acute encephalopathy secondary to #Meningitis #Leukocytosis Today pt reports vomiting and fever overnight with headache, however also reports resolution of nuchal rigidity and meningitic neck pain.pt reports no n/v/d, fever, double vision. CSF shows elevated protein, CSF gram stain showed no growth. Most likely at this stage aseptic meningitis vs bacterial vs fungal. Head CT in ED negative. - Neurology Dr. Huddleston consulted, appreciated, per recs most likely aseptic/viral meningitis with plan to continue antibiotics and antivirals. - CSF and blood cx pending - Cont Acyclovir, Rocephin, Vancomycin #Sinus tachycardia Pt became tachycardic overnight when positioning from bed to standing. -Ordered Orthostatics #Possible depression #Possible bipolar Patient describes previously seeing psychiatrist who prescribed Sertraline and Risperidone for some combination of BPD and depression, however mentions the medications were filled by a PCP in a walk in clinic. History unreliable, unlikely an SSRI would be prescribed in setting of BPD however pt reports past manic episodes. - Cont home Sertraline, hold risperidone for now. #Chronic normocytic anemia Hgb 9.9 today from 10.1 yesterday. Appears to be chronic per chart review. Per iron panel 07/23/25 pt has low iron 24 w/ normal ferritin 89. - Most likely anemia is combination of chronic issue and fluid administration this admit. Will monitor for now, trend CBC in AM #Hyponatremia #Hypokalemia (resolved) #Hypochloremia (resolved) Electrolyte imbalance likely 2/2 days of n/v. - Encourage hydration orally, replete as necessary. Hospital management: Disposition: Monitor improvement on current abx/acyclovir, consider DC once cultures return. Diet: no restriction Lines: peripheral IVs DVT prophylaxis: SCDs CODE STATUS: full code ----- Plan discussed with attending physician Dr. Flavio Sears, Medical Student [employer] Attending Provider Attestation/Addendum I have examined the patient, reviewed labs and imaging findings, discussed the case with the resident(s), and reviewed entered orders. I agree with the plan of care as outlined in this note, with these additional summaries/recommendations: Patient seen at bedside. No acute overnight events. She reports improvement in headache and neck stiffness. Patient is on IV antibiotics for suspected bacterial meningitis although suspicion is low. She is status post lumbar puncture. We will await final culture results before discontinuing antibiotics. Most likely patient has viral meningitis/encephalitis. Continue supportive care and antipyretics. Patient has sinus tachycardia from sitting to standing. We will order orthostatic vital signs. If orthostatics negative then it is possible patient has postural tachycardic syndrome. Patient updated on the plan and in agreement. All questions answered to satisfaction. Please see residents note for additional details and management. Dr. Flavio MD
[2025-07-24] MEDS: cefTRIAXone 2 GM in SODIUM CHLORIDE 0.9% (Popper) 50 ML IV ×2 (10:40→21:16)
--- NOTE | 2025-07-24 17:47 | PC.NURSE ---
Spoke with Sudhir Romero on the second floor at 1745 to give report regarding patient for a transfer.
[2025-07-24] MEDS: SERTRALINE HCL 25 MG TABLET 50 MG PO (21:16)
--- NOTE | 2025-07-24 23:46 | PD.NEUROPROG ---
Documentation for date of: 07/24/25 Subjective Subjective Interval history: Patient was seen in Tele today at the bedside, continues to have chills, headache, nausea and neck pain. Exam - Neurology Vital Signs Temp Pulse Resp BP Pulse Ox O2 Del Method 98.1 F 65 13 104/76 99 Room Air 07/24/25 20:00 07/24/25 20:00 07/24/25 20:00 07/24/25 20:00 07/24/25 20:00 07/24/25 20:00 Narrative Exam GENERAL APPEARANCE: Well hydrated, well-nourished in no acute distress. HEENT: Normocephalic, atraumatic, extraocular movements intact. Pupils: Equal reacting to light and accommodation NECK: Supple, no JVD or bruits. CARDIOVASULAR: Heart: S1, S2 heard, regular without S3-S4 or murmur no rubs or gallops. LUNGS/CHEST: Clear to auscultation bilaterally. No rails, rhonchi, or wheezing. Normal inspection. ABDOMEN: Soft, nontender, with normal bowel sounds. No pulsatile masses. No rebound, rigidity, or guarding. Normal inspection and palpation. EXTREMITIES: Normal inspection and palpation. No edema, clubbing or cyanosis. SKIN: Warm and dry without rashes. Normal inspection. MUSCULOSKELETAL: No cervical, thoracic, lumbar or midline bony tenderness. Normal inspection. NEURO: Alert, awake and oriented x3. Cranial nerves: II through XII grossly intact. Speech and language: Normal with no dysarthria or dysphasia. Motor system: Tone and bulk: Normal: Strength: 5 out of 5 in all 4 extremities; No pronator drift noted. Deep tendon reflexes: 2+ bilaterally symmetrical. Plantar reflex: Downgoing bilaterally. Sensory system: Intact to all modalities of sensation bilaterally. Coordination: Intact to [id number] and [id number] test bilaterally. No ataxia, no dysmetria, or dysdiadochokinesia noted. No intention tremors noted. Gait: Not tested. She does have signs of meningeal irritation. PSYCHIATRIC: Normal mood and affect. Objective Labs 07/24/25 04:25 07/24/25 04:25 Labs: Laboratory Results - last 24 hr 07/24/25 04:25 WBC 6.7 RBC 3.56 L Hgb 9.9 L Hct 28.9 L MCV 81 MCH 27.8 MCHC 34.3 RDW Std Deviation 38.2 Plt Count 157 Neut % (Auto) 76 Lymph % (Auto) 14 [place] % (Auto) 9 Eos % (Auto) 0 Baso % (Auto) 0 Neut # (Auto) 5.1 Lymph # (Auto) 0.9 L [place] # (Auto) 0.6 Eos # (Auto) 0.0 Baso # (Auto) 0.0 Immature Gran # (Auto) 0.05 H Absolute Nucleated RBC 0.00 Immature Gran % 1 H Nucleated RBC % 0 Sodium 133 L Potassium 3.5 Chloride 101 Carbon Dioxide 22.2 Anion Gap 10 BUN < 5 L Creatinine 0.7 Estim Creat Clear Calc 100.8 eGFR > 60 BUN/Creatinine Ratio 7 L Glucose 88 Calculated Osmolality 262 L Calcium 8.9 Corrected Calcium 9.1 Total Bilirubin 0.4 AST < 8 ALT < 7 L Alkaline Phosphatase 43 L Total Protein 5.9 Albumin 3.8 Globulin 2.1 L Albumin/Globulin Ratio 1.8 Assessment & Plan Assessment and plan (1) Meningitis: Status: Acute Assessment and plan: She most likely has viral meningitis So far CSF analysis is consistent with that, follow-up with final CSF culture Continue with the current antibiotics until the culture comes back negative and Tylenol as needed
[2025-07-25] VITALS (10 sets, daily range): BP systolic 99–122; BP diastolic 72–80; PULSE 58–98; RESP 18–98; TEMP 36.1–37; O2SAT 96–100; BMI 25.7
--- NOTE | 2025-07-25 02:36 | PC.NURSE ---
[facility]25 from 0200 to 0235.
[2025-07-25] MEDS: ONDANSETRON INJ 2 MG/ML INJ 2 ML 4 MG IVP (03:29)
[2025-07-25] MEDS: ACYCLOVIR INJ 600 MG in SODIUM CHLORIDE 0.9% 100 ML 112 MG IV ×2 (05:10→14:47)
[2025-07-25] MEDS: ACETAMINOPHEN 500 MG TABLET 1000 MG PO ×2 (05:55→17:00)
[2025-07-25 06:01] LABS: Basophils # (Auto) 0.1 Thou/mm3 (0.0-0.2); Basophils % (Auto) 1 % (0-2.5); Eosinophils # (Auto) 0.0 Thou/mm3 (0.0-0.5); Eosinophils % (Auto) 0 % (0-10); Hematocrit 31.5 % (36.0-46.0); Hemoglobin 10.5 g/dL (12.0-16.0); Immature Granulocytes Auto 0.18 Thou/mm3 (0.00-0.00); Lymphocytes # (Auto) 0.6 Thou/mm3 (1.0-4.8); Lymphocytes % (Auto) 11 % (10-50); Mean Corpuscular HGB Conc 33.3 g/dl (31.0-37.0); Mean Corpuscular Hemoglobin 27.7 pg (25.0-35.0); Mean Corpuscular Volume 83 fL (80-100); Monocytes # (Auto) 0.6 Thou/mm3 (0.0-0.8); Monocytes % (Auto) 12 % (0-12); Neutrophils # (Auto) 3.6 Thou/mm3 (1.8-7.7); Neutrophils % (Auto) 72 % (37-80); Nucleated Red Blood Cell # 0.00 Thou/mm3 (0.00-0.00); Nucleated Red Blood Cell % 0 /100 WBC (0); Platelet Count 184 Thou/mm3 (140-440); RDW Standard Deviation 39.9 fL (36.4-46.3); Red Blood Count 3.79 Miln/mm3 (4.00-5.20); White Blood Count 5.0 Thou/mm3 (3.6-11.0)
[2025-07-25] MEDS: VANCOMYCIN/NS 1 GM IVPB 200 ML IV (06:13)
[2025-07-25 06:34] LABS: Alanine Aminotransferase < 7 U/L (10-49); Albumin, Serum 3.9 gm/dL (3.5-5.0); Albumin/Globulin Ratio 1.9 (1.2-2.2); Alkaline Phosphatase 50 U/L (46-116); Anion Gap 10 (7-16); Aspartate Amino Transferase 10 U/L (0-34); BUN/Creatinine Ratio 6 Ratio (12-20); Bilirubin,Total 0.3 mg/dL (0.3-1.2); Blood Urea Nitrogen < 5 mg/dL (9-23); Calcium 8.9 mg/dL (8.3-10.6); Calcium (Corrected) 9.0 mg/dL (8.5-10.1); Carbon Dioxide 24.2 mMol/L (20.0-31.0); Chloride 103 mMol/L (98-107); Creatinine (Component) 0.8 mg/dL (0.6-1.3); Estimated Creatinine Clearance 88.2 mL/min (>60); Globulin 2.1 gm/dL (2.3-3.5); Glucose 92 mg/dL (74-106); Osmolality,Calculated 271 (275-295); Potassium 3.8 mMol/L (3.4-5.1); Sodium 137 mMol/L (136-145); Total Protein 6.0 gm/dL (5.7-8.2); eGFR > 60 See Note
[2025-07-25] MEDS: cefTRIAXone 2 GM in SODIUM CHLORIDE 0.9% (Popper) 50 ML IV (08:28)
--- NOTE | 2025-07-25 10:24 | ESPR_ITS ---
<Statement entered by Rowdy Gary MD - 07/25/25 17:03> Patient was seen and examined at bedside this morning. No acute overnight events. Patient's labs today were stable, no spike in fevers or WBCs. CSF West Nile still pending. Patient still states that she has low appetite and low energy. Patient's heart rate went up to the 150s during orthostatics, but BP did not meet measures for positive orthostatic vitals. At this time likely viral meningitis will continue with acyclovir and discontinue vancomycin and Rocephin. Blood cultures were negative from the first 48 hours and CSF was negative in 3 days. Started LR at 100 mL/h for total of 2 bags given patient's poor p.o. intake. Possible discharge in the next 24 to 48 hours. General: A/O x3, no acute distress, ill appearing Eyes: PERRL, EOMI. Anicteric, vision grossly intact. Ears: No ear pain, no ear discharge, Hearing grossly intact. Nose: No nasal discharge. Mouth/Throat: Moist mucous membranes, no redness, no lesions. Neck: Neck supple, non-tender, no cervical lymphadenopathy. Lungs: Clear CHRIS to auscultation and percussion, No accessory muscle use. Cardio: Normal S1/S2, regular rhythm, no murmurs, no JVD or carotid bruits. Abdomen: Soft, non-tender, no palpable masses, peristalsis present, no guarding or rebound. Extremities: Symmetrical, no significant deformities, no peripheral edema , non-tender, peripheral pulses presents. Skin: No rashes, no lesions, warm to touch. Neuro: No focal neurological deficits. Psych: Cooperative, appropriate mood and effect. Note reviewed and agree with medical student's care plan as documented except as noted above. Plan discussed with attending physician Dr. Flavio Gary PGY2 Disclaimer: Even though this this note was dictated by speech recognition and even though it was carefully revised there may still be minor errors in profiler due to voice recognition software. Documentation for date of: 07/25/25 Subjective Subjective Interval history: Overnight uneventful except for isolated incident of HR elevation to 150s when pt stood up, pt was asymptomatic during this time and HR normalized spontaneously. Patient seen and examined at bedside and appears to be in moderate discomfort due to headache with associated nausea, reports condition about the same as yesterday. CSF studies today show negative bacterial cultures, viral cultures pending. Pt has only been consuming 25% or less of meals, not hydrating consistently. She attributes this to lack of appetite and nausea. Pt also endorses fatigue, otherwise denies SOB, vomiting, diarrhea, chest pain, abdominal pain, chills, rash, palpitations. ROS negative except as noted above. Exam Vital Signs Temp Pulse Resp BP Pulse Ox O2 Del Method 97.2 F 92 18 107/78 100 Room Air 07/25/25 08:00 07/25/25 08:59 07/25/25 08:59 07/25/25 08:00 07/25/25 08:00 07/25/25 08:00 Narrative Exam General: Uncomfortable, acutely ill young woman. Neurologic: GCS 15. Alert and oriented x3, no gross neurological deficit, and patient able to move all 4 extremities. HEENT: Normocephalic, atraumatic. Heart: Regular rate/rhythm, normal S1 and S2, no murmurs. Lungs: Clear to auscultation bilaterally with no wheezing or crackles. Abdomen: Soft, nondistended, nontender, positive bowel sounds. No guarding or rebound tenderness. Extremities: No edema. 2+ radial and dorsalis pedis pulses bilaterally. Skin: Warm. Dry. No rash or ecchymoses. Objective Labs 07/26/25 04:37 07/26/25 04:37 Labs: Laboratory Results - last 24 hr 07/25/25 05:38 WBC 5.0 RBC 3.79 L Hgb 10.5 L Hct 31.5 L MCV 83 MCH 27.7 MCHC 33.3 RDW Std Deviation 39.9 Plt Count 184 Neut % (Auto) 72 Lymph % (Auto) 11 [place] % (Auto) 12 Eos % (Auto) 0 Baso % (Auto) 1 Neut # (Auto) 3.6 Lymph # (Auto) 0.6 L [place] # (Auto) 0.6 Eos # (Auto) 0.0 Baso # (Auto) 0.1 Immature Gran # (Auto) 0.18 H Absolute Nucleated RBC 0.00 Immature Gran % 4 H Nucleated RBC % 0 Sodium 137 Potassium 3.8 Chloride 103 Carbon Dioxide 24.2 Anion Gap 10 BUN < 5 L Creatinine 0.8 Estim Creat Clear Calc 88.2 eGFR > 60 BUN/Creatinine Ratio 6 L Glucose 92 Calculated Osmolality 271 L Calcium 8.9 Corrected Calcium 9.0 Total Bilirubin 0.3 AST 10 ALT < 7 L Alkaline Phosphatase 50 Total Protein 6.0 Albumin 3.9 Globulin 2.1 L Albumin/Globulin Ratio 1.9 Quality Measures Quality Measures sepsis Current suspected stage: ruled out Possible source: unknown Blood cultures ordered: yes Antibiotic ordered: No Assessment & Plan Assessment Current Active Medications: Generic Name Dose Route Start Last Admin Trade Name Freq PRN Reason Stop Dose Admin Acetaminophen 1,000 mg 07/23/25 01:14 07/25/25 05:55 Acetaminophen 500 Mg Tablet PO 08/22/25 01:13 1,000 mg Q6HR PRN Administration fever >99.9 or pain 1-5 Acyclovir Sodium 600 mg/ 112 mls @ 112 mls/hr 07/23/25 22:00 07/25/25 05:10 Sodium Chloride IV 07/30/25 21:59 112 mls/hr Q8HR TORRES Administration Lactated Ringer's 1,000 mls @ 100 mls/hr 07/25/25 09:45 Lactated Ringers IV 07/26/25 05:44 .Q10H TORRES Ondansetron HCl 4 mg 07/22/25 18:31 07/25/25 03:29 Ondansetron Inj 2 Mg/Ml Inj 2 Ml IVP 08/21/25 18:30 4 mg Q6H PRN Administration NAUSEA OR VOMITING Protocol Sertraline HCl 50 mg 07/23/25 21:00 07/24/25 21:16 Sertraline Hcl 25 Mg Tablet PO 08/22/25 20:59 50 mg HS TORRES Administration Plan Ashlyn Murdock is a 24-year-old female with no significant PMH presented to the ED with 6 days of nausea, vomiting and fevers with double vision that started the day of presentation. LP in the emergency department showed elevated proteins in the CSF. She was admitted for management of her suspected meningitis. #Acute encephalopathy secondary to #Meningitis #Leukocytosis (resolved) Today pt reports nausea but no vomiting. She was afebrile overnight, does not have neck pain or nuchal rigidity. CSF showed elevated protein, CSF culture and gram stain both negative. Viral panels and blood cultures pending. Very likely at this stage aseptic meningitis vs bacterial vs fungal. Head CT in ED negative. - Neurology Dr. Huddleston consulted, appreciated, per recs continue antiviral and DC abx as cx are negative. - Blood cx pending - Cont Acyclovir - DC Rocephin, Vancomycin - Tylenol and Zofran for symptomatic relief #Sinus tachycardia #?POTS Pt once again became tachycardic to 150s overnight when positioning from bed to standing, did not endorse symptoms during this time. Orthostatics yesterday were negative however very close to being positive (16 SBP point drop and 8 DBP point drop from supine to standing). Pt is also consuming 25% or less of meals and not drinking water consistently, attributes this to nausea and lack of appetite. She is also menstruating this admission. This all raises concern for component of POTS secondary to hypovolemia. Plan for now is to provide IV fluid hydration. - Started LR 100ml/hr #Possible depression #Possible bipolar Patient describes previously seeing psychiatrist who prescribed Sertraline and Risperidone for some combination of BPD and depression, however mentions the medications were filled by a PCP in a walk in clinic. History unreliable, unlikely an SSRI would be prescribed in setting of BPD however pt reports past manic episodes. - Cont home Sertraline, hold risperidone for now. #Chronic normocytic anemia Hgb 9.9 today from 10.1 yesterday. Appears to be chronic per chart review. Per iron panel 07/23/25 pt has low iron 24 w/ normal ferritin 89. - Most likely anemia is combination of chronic issue and fluid administration this admit. Will monitor for now, trend CBC in AM #Hyponatremia (resolved) #Hypokalemia (resolved) #Hypochloremia (resolved) Electrolyte imbalance likely 2/2 days of n/v. - Encourage hydration orally, replete as necessary. Hospital management: Disposition: Monitor improvement on current acyclovir, consider DC within 24 hours. Diet: no restriction Lines: peripheral IVs Fluid: LR 100ml/hr DVT prophylaxis: SCDs CODE STATUS: full code ----- Plan discussed with attending physician Dr. Flavio Sears, Medical Student [facility] Attending Provider Attestation/Addendum I have examined the patient, reviewed labs and imaging findings, discussed the case with the resident(s), and reviewed entered orders. I agree with the plan of care as outlined in this note, with these additional summaries/recommendations: Patient seen at bedside. No acute overnight events. Patient has no acute complaints today although is somnolent and reports she did not sleep well last night. CSF culture returned with no growth ruling out bacterial meningitis. Most likely patient has viral meningitis. Further CSF studies still pending. Discontinue IV antibiotics and continue IV acyclovir. In-house neurology following. Continue supportive care and antipyretics. Patient has sinus tachycardia from sitting to standing. Orthostatic vital signs were borderline negative. We will give IV fluids today and repeat orthostatics in AM. If tachycardia is not secondary to dehydration then patient likely has postural tachycardic syndrome and can follow-up with cardiology. Patient updated on the plan and in agreement. All questions answered to satisfaction. Please see residents note for additional details and management. Dr. Flavio MD
[2025-07-25] MEDS: RINGERS LACTATED 1000 ML 1,000 ML 100 ML IV ×2 (10:44→20:10)
[2025-07-25 13:31] LABS: Vancomycin,Trough 19.1 mcg/mL (5.0-10.0)
--- NOTE | 2025-07-25 13:32 | ESPR_ITS ---
Documentation for date of: 07/25/25 Subjective Subjective Interval history: Patient examined at bedside. States that her headache is improving. Neck flexion does not appear to be illiciting any pain. Endorses decreased appetite still. Patient has remained afrebrile since yesterday morning. Labs uremarkable. CSF culture was negative for any growth. Blood cultures negative, viral pannel including Herpes and [place] nile are pending. Discontinue Acyclovir as there is less concern for viral induced encephalitis. Continue with supportive treatment. Exam Vital Signs Temp Pulse Resp BP Pulse Ox O2 Del Method 97.7 F 65 21 H 111/80 100 Room Air 07/25/25 11:54 07/25/25 11:54 07/25/25 11:54 07/25/25 11:54 07/25/25 11:54 07/25/25 11:54 Narrative Exam GENERAL APPEARANCE: Young female, sleeping, lethargic, well-nourished in no acute distress. HEENT: Normocephalic, atraumatic, extraocular movements intact. Pupils: Equal reacting to light and accommodation NECK: Supple, no JVD or bruits. CARDIOVASULAR: Heart: S1, S2 heard, RRR, no murmurs appreciated LUNGS/CHEST: Clear to auscultation bilaterally. No rails, rhonchi, or wheezing. ABDOMEN: Soft, nontender, with normal bowel sounds. No rebound, rigidity, or guarding. EXTREMITIES: Normal inspection and palpation. No edema, clubbing or cyanosis. SKIN: Warm and dry without rashes. MUSCULOSKELETAL: No cervical, thoracic, lumbar or midline bony tenderness. No LE edema NEURO: Alert, awake and oriented x3. Cranial nerves: II through XII grossly intact. Speech and language: Normal with no dysarthria or dysphasia. Motor system: Tone and bulk: Normal: Strength: 5 out of 5 in all 4 extremities; No pronator drift noted. Deep tendon reflexes: 2+ bilaterally symmetrical. Plantar reflex: Downgoing bilaterally. Sensory system: Intact to all modalities of sensation bilaterally. Coordination: Intact to [id number] and [id number] test bilaterally. No ataxia, no dysmetria, or dysdiadochokinesia noted. No intention tremors noted. Gait: Not tested. She does have signs of meningeal irritation. PSYCHIATRIC: Normal mood and affect. Objective Labs 07/26/25 04:37 07/26/25 04:37 Labs: Laboratory Results - last 24 hr 07/25/25 07/25/25 05:38 13:00 WBC 5.0 RBC 3.79 L Hgb 10.5 L Hct 31.5 L MCV 83 MCH 27.7 MCHC 33.3 RDW Std Deviation 39.9 Plt Count 184 Neut % (Auto) 72 Lymph % (Auto) 11 [place] % (Auto) 12 Eos % (Auto) 0 Baso % (Auto) 1 Neut # (Auto) 3.6 Lymph # (Auto) 0.6 L [place] # (Auto) 0.6 Eos # (Auto) 0.0 Baso # (Auto) 0.1 Immature Gran # (Auto) 0.18 H Absolute Nucleated RBC 0.00 Immature Gran % 4 H Nucleated RBC % 0 Sodium 137 Potassium 3.8 Chloride 103 Carbon Dioxide 24.2 Anion Gap 10 BUN < 5 L Creatinine 0.8 Estim Creat Clear Calc 88.2 eGFR > 60 BUN/Creatinine Ratio 6 L Glucose 92 Calculated Osmolality 271 L Calcium 8.9 Corrected Calcium 9.0 Total Bilirubin 0.3 AST 10 ALT < 7 L Alkaline Phosphatase 50 Total Protein 6.0 Albumin 3.9 Globulin 2.1 L Albumin/Globulin Ratio 1.9 Vancomycin Trough 19.1 H Quality Measures Quality Measures sepsis Current suspected stage: ruled out Possible source: unknown Blood cultures ordered: yes Antibiotic ordered: No Assessment & Plan Assessment Current Active Medications: Generic Name Dose Route Start Last Admin Trade Name Freq PRN Reason Stop Dose Admin Acetaminophen 1,000 mg 07/23/25 01:14 07/25/25 05:55 Acetaminophen 500 Mg Tablet PO 08/22/25 01:13 1,000 mg Q6HR PRN Administration fever >99.9 or pain 1-5 Acyclovir Sodium 600 mg/ 112 mls @ 112 mls/hr 07/23/25 22:00 07/25/25 05:10 Sodium Chloride IV 07/30/25 21:59 112 mls/hr Q8HR TORRES Administration Lactated Ringer's 1,000 mls @ 100 mls/hr 07/25/25 09:45 07/25/25 10:44 Lactated Ringers IV 07/26/25 05:44 100 mls/hr .Q10H TORRES Administration Ondansetron HCl 4 mg 07/22/25 18:31 07/25/25 03:29 Ondansetron Inj 2 Mg/Ml Inj 2 Ml IVP 08/21/25 18:30 4 mg Q6H PRN Administration NAUSEA OR VOMITING Protocol Sertraline HCl 50 mg 07/23/25 21:00 07/24/25 21:16 Sertraline Hcl 25 Mg Tablet PO 08/22/25 20:59 50 mg HS TORRES Administration Plan Ashlyn Murdock is a 24-year-old female with no significant PMH presented to the ED with 6 days of nausea, vomiting and fevers with double vision that started the day of presentation. LP in the emergency department showed elevated proteins in the CSF. She was admitted for management of her suspected meningitis. #Acute encephalopathy (resolved) secondary to #Viral Meningitis She was afebrile overnight, does not have neck pain or nuchal rigidity. CSF showed elevated protein (72), CSF culture and gram stain both negative. Blood cultures negative. Head CT in ED negative. - Discontinue IV acyclovir 600mg TID - Blood cx negative - Viral panels pending (herepes/west nile) - Tylenol and Zofran for symptomatic relief #Sinus tachycardia #?POTS #Possible depression #Possible bipolar #Chronic normocytic anemia #Hyponatremia (resolved) #Hypokalemia (resolved) #Hypochloremia (resolved) #Leukocytosis (resolved) Primary care team to manage above conditions and ongoing care needs. The patient's management plan was discussed with my attending physician Dr. Huddleston. Brionna May, PGY-2 Attending Provider Attestation/Addendum I personally have seen and examined the patient at the bedside and agree with resident's findings, assessment and plan of care. As the CSF culture is negative, patient remains afebrile, even though she has poor appetite and continued to have mild headache. She can be off of antibiotics including vancomycin Rocephin and acyclovir. Patient most likely has aseptic/viral meningitis. Needs supportive care, fluids and rest.
--- NOTE | 2025-07-25 13:32 | PD.RESCONSUL ---
HPI Data of Consult Requesting Physician: Andrei Muniz MD Admitting Provider: Lainey Bardales MD Attending Provider: Andrei Muniz MD Primary Care Provider: Xochilt Young NP Consult Narrative cc:: cc: Andrei Muniz MD Exam Vital Signs Temp Pulse Resp BP Pulse Ox O2 Del Method 97.7 F 65 21 H 111/80 100 Room Air 07/25/25 11:54 07/25/25 11:54 07/25/25 11:54 07/25/25 11:54 07/25/25 11:54 07/25/25 11:54 Results Labs 07/25/25 05:38 07/25/25 05:38 Labs: Short CBC 07/25/25 Range/Units 05:38 WBC 5.0 (3.6-11.0) Thou/mm3 Hgb 10.5 L (12.0-16.0) g/dL Hct 31.5 L (36.0-46.0) % Plt Count 184 (140-440) Thou/mm3 BMP 07/25/25 05:38 Sodium 137 Potassium 3.8 Chloride 103 Carbon Dioxide 24.2 BUN < 5 L Creatinine 0.8 Glucose 92 Calcium 8.9 Liver Function 07/25/25 Range/Units 05:38 Total Bilirubin 0.3 (0.3-1.2) mg/dL AST 10 (0-34) U/L ALT < 7 L (10-49) U/L Alkaline Phosphatase 50 (46-116) U/L Albumin 3.9 (3.5-5.0) gm/dL Quality Measures Quality Measures sepsis Possible source: unknown Blood cultures ordered: yes Medications Home Medications and Allergies Home Medications ?Medication ?Instructions ?Recorded ?Confirmed ?Type risperidone 0.5 mg tablet 0.5 mg PO HS 07/23/25 07/23/25 History sertraline 50 mg tablet 50 mg PO HS 07/23/25 07/23/25 History Allergies Allergy/AdvReac Type Severity Reaction Status Date / Time No Known Allergies Allergy Verified 07/22/25 10:14 Visit Medications Acetaminophen (Acetaminophen 500 Mg Tablet) 1,000 mg PO Q6HR PRN PRN Reason: fever >99.9 or pain 1-5 Stop: 08/22/25 01:13 Last Admin: 07/25/25 05:55 Dose: 1,000 mg Acyclovir Sodium 600 mg/ (Sodium Chloride) 112 mls @ 112 mls/hr IV Q8HR TORRES Stop: 07/30/25 21:59 Last Admin: 07/25/25 05:10 Dose: 112 mls/hr Lactated Ringer's (Lactated Ringers) 1,000 mls @ 100 mls/hr IV .Q10H TORRES Stop: 07/26/25 05:44 Last Admin: 07/25/25 10:44 Dose: 100 mls/hr Ondansetron HCl (Ondansetron Inj 2 Mg/Ml Inj 2 Ml) 4 mg IVP Q6H PRN; Protocol PRN Reason: NAUSEA OR VOMITING Stop: 08/21/25 18:30 Last Admin: 07/25/25 03:29 Dose: 4 mg Sertraline HCl (Sertraline Hcl 25 Mg Tablet) 50 mg PO HS TORRES Stop: 08/22/25 20:59 Last Admin: 07/24/25 21:16 Dose: 50 mg Discontinued Medications Acetaminophen (Acetaminophen 325 Mg Tablet) 650 mg PO X1 ONE Stop: 07/22/25 11:17 Last Admin: 07/22/25 12:08 Dose: Not Given Acetaminophen (Acetaminophen 325 Mg Tablet) 1,000 mg PO Q6HR PRN PRN Reason: Fever >99.9 Stop: 08/21/25 19:17 Acetaminophen (Acetaminophen 325 Mg Tablet) 1,000 mg PO Q6HR PRN PRN Reason: Fever >100.4 and pain Stop: 08/21/25 19:17 Lactated Ringer's (Lactated Ringers) 1,000 mls @ 999 mls/hr IV .Q1H1M ONE Stop: 07/22/25 12:16 Last Infusion: 07/22/25 17:20 Dose: Infused Acetaminophen (Ofirmev Inj) 1,000 mg in 100 mls @ 250 mls/hr IV STAT STA Stop: 07/22/25 12:28 Last Infusion: 07/22/25 12:43 Dose: Infused Piperacillin Sod/Tazobactam (Sod 4.5 gm/ Sodium Chloride) 100 mls @ 200 mls/hr IV X1 ONE; Protocol Stop: 07/22/25 16:03 Last Admin: 07/22/25 17:19 Dose: Not Given Ceftriaxone Sodium/Dextrose (Rocephin/D5w 1gm Iv Premix) 1 gm in 50 mls @ 100 mls/hr IV STAT STA Stop: 07/22/25 16:03 Last Admin: 07/22/25 17:19 Dose: Not Given Vancomycin/Sodium Chloride (Vancomycin/Ns 1 Gm Ivpb) 200 mls @ 120 mls/hr IV X1 ONE Stop: 07/22/25 17:24 Last Admin: 07/22/25 17:10 Dose: 120 mls/hr Ceftriaxone Sodium 2 gm/ (Sodium Chloride) 50 mls @ 100 mls/hr IV STAT STA Stop: 07/22/25 16:09 Last Infusion: 07/22/25 17:18 Dose: Infused Acyclovir Sodium 600 mg/ (Sodium Chloride) 112 mls @ 112 mls/hr IV X1 ONE Stop: 07/22/25 18:14 Last Admin: 07/22/25 20:11 Dose: 112 mls/hr Acyclovir Sodium 599 mg/ (Sodium Chloride) 111.98 mls @ 100 mls/hr IV Q8HR TORRES Stop: 07/30/25 05:59 Ceftriaxone Sodium 2 gm/ (Sodium Chloride) 50 mls @ 100 mls/hr IV Q12HR TORRES Stop: 07/30/25 08:59 Last Admin: 07/25/25 08:28 Dose: 100 mls/hr Acyclovir Sodium 599 mg/ (Sodium Chloride) 111.98 mls @ 100 mls/hr IV X1 ONE Stop: 07/22/25 20:37 Last Admin: 07/22/25 22:11 Dose: Not Given Sodium Chloride (Ns) 1,000 mls @ 80 mls/hr IV .[id number] ONE Stop: 07/23/25 07:51 Last Admin: 07/22/25 20:14 Dose: 80 mls/hr Magnesium Sulfate (Magnesium Sulfate Ivpb) 2 gm in 50 mls @ 25 mls/hr IV X1 ONE Stop: 07/22/25 21:26 Last Admin: 07/22/25 20:17 Dose: 25 mls/hr Acyclovir Sodium 600 mg/ (Sodium Chloride) 112 mls @ 112 mls/hr IV Q8HR TORRES Stop: 07/23/25 15:00 Last Admin: 07/23/25 13:28 Dose: 112 mls/hr Vancomycin/Sodium Chloride (Vancomycin/Ns 750 Mg Ivpb) 750 mg in 150 mls @ 120 mls/hr IV Q8HR TORRES; Protocol Stop: 07/30/25 08:59 Last Admin: 07/23/25 09:05 Dose: 120 mls/hr Sodium Chloride (Ns) 500 mls @ 80 mls/hr IV .Q6H15M ONE Stop: 07/23/25 14:59 Last Admin: 07/23/25 09:17 Dose: 80 mls/hr Vancomycin/Sodium Chloride (Vancomycin/Ns 750 Mg Ivpb) 750 mg in 150 mls @ 120 mls/hr IV Q8HR TORRES; Protocol Stop: 07/30/25 10:29 Last Infusion: 07/24/25 07:07 Dose: Infused Vancomycin/Sodium Chloride (Vancomycin/Ns 1 Gm Ivpb) 200 mls @ 120 mls/hr IV Q8HR TORRES; Protocol Stop: 07/30/25 10:29 Last Admin: 07/25/25 06:13 Dose: 120 mls/hr Metoclopramide HCl (Metoclopramide Inj 5 Mg/Ml Vial 2 Ml) 5 mg IVP STAT STA; Protocol Stop: 07/22/25 11:17 Last Admin: 07/22/25 11:44 Dose: 5 mg Midazolam HCl (Midazolam Inj 1 Mg/Ml Vial 2 Ml) 0.5 mg IVP X1 ONE Stop: 07/22/25 13:59 Last Admin: 07/22/25 17:19 Dose: Not Given Ondansetron HCl (Ondansetron Odt 4 Mg Tabrap) 4 mg PO Q6HR PRN; Protocol PRN Reason: NAUSEA OR VOMITING Stop: 08/21/25 19:54 Pharmacy Consult (Vancomycin Pharmacy To Dose 1 Each Each) 1 each IV STAT PRN PRN Reason: CONSULT Stop: 08/21/25 15:33 Potassium Chloride (Potassium Chloride 20 Meq Tabcr) 40 meq PO X1 ONE Stop: 07/22/25 18:37 Last Admin: 07/22/25 20:24 Dose: 40 meq
--- NOTE | 2025-07-25 14:06 | PD.RESDS ---
Planned Discharge Date 07/26/25 DS: Providers Provider Date of admission: 07/22/25 18:31 Primary care physician: Xochilt Young NP Admitting Provider: Lainey Bardales MD Attending Provider on Admission: Andrei Muniz MD Consults: 07/22/25 18:34 Consult to Neurology / Tele-Neurology Stat Comment: Consulting Provider: Otto Huddleston Attending Provider on DC: Rosalinda Christianson Discharging Provider: Rosalinda Christianson DS: Diagnosis Problem List Completed Was Problem List Reviewed/Reconciled?: Yes Hospital Course Hospital Course Hospital course: 24-year-old female with no significant past medical history presented to the ED on 07/22/2025 with 6 days of throbbing headaches, nausea, vomiting, fevers, and neck pain. She also reported double vision that started the day of presentation. She tried ibuprofen at home with little relief. She denied recent travel. Her mother recently had COVID. In the ED she was febrile to highest 102 degrees. Labs showed leukocytosis and anemia, urine showed protein, ketones, blood, bacteria. Imaging was noncontributory, and LP showed elevated CSF protein w/ normal glucose. CSF and blood were sent for culture, empiric antibiotics and acyclovir were started, maintenance fluids were administered and she was admitted for suspected aseptic meningitis. Neurology was consulted who agreed with aseptic meningitis and recommended empiric abx and acyclovir to be adjusted per culture results The pt became febrile overnight once again 07/23/25 to 103 highest but normalized with tylenol. Notably, pt endorsed continuous nausea and loss of appetite this admission that were resistant to anti-emetics and she consumed very few foods and fluids. When the patient stood at night she developed sinus tachycardia to the 170s though she endorsed no symptoms at this time. This occurred once more the following night to 150s HR and orthostatic vitals were collected which were borderline but negative. It was concluded that the patient developed postural orthostatic tachycardia secondary to hypovolemia from poor oral intake, she was administered a fluid bolus with good effect. Antibiotics were discontinued 07/25/25 as CSF and blood cultures showed no bacterial growth. Leukocytosis present on admission resolved and Hgb uptrended. On discharge the patient is ambulatory and hemodynamically stable, but still endorses headache and lack of appetite. She is discharged with no new medications and instructions to follow up with PCP regarding recovery and viral panel results. Time Spent with Patient Time attestation: Total time spent providing and/or coordinating discharge services: Time spent: Greater than 30 minutes Exam Vital Signs Temp Pulse Resp BP Pulse Ox O2 Del Method 97.7 F 65 21 H 111/80 100 Room Air 07/25/25 11:54 07/25/25 11:54 07/25/25 11:54 07/25/25 11:54 07/25/25 11:54 07/25/25 11:54 Discharge Plan Plan Patient Disposition: HOME (Self Care) Care Plan Goals: Follow-up with primary care physician within 5 days upon discharge Follow-up with neurology within 5 to 7 days upon discharge Follow-up with your primary care physician about CSF [place] pending labs. Continue taking all other home medications as prescribed. Please come back to the ER if symptoms persist or worsen or if you develop new onset fevers. Prescriptions/Referrals Prescriptions/Med Rec: No Action risperidone 0.5 mg tablet 0.5 mg PO HS Patient Comments: TAKE 1 TABLET BY MOUTH AT BEDTIME sertraline 50 mg tablet 50 mg PO HS Referrals: Xochilt Young NP [Primary Care Provider] Patient/Caregiver Discharge Instructions Other Discharge Activity Instructions:: Follow-up with primary care physician within 5 days upon discharge Follow-up with neurology within 5 to 7 days upon discharge Follow-up with your primary care physician about CSF [place] pending labs. Continue taking all other home medications as prescribed. Please come back to the ER if symptoms persist or worsen or if you develop new onset fevers. Print Language: Yoruba Stand Alone Forms: Tg Award Info., Patient Portal Info Letter Quality Discharge Quality Measures none
[2025-07-25] MEDS: SERTRALINE HCL 25 MG TABLET 50 MG PO (20:08)
[2025-07-26] VITALS: BP 110/86; PULSE 55; PULSE 60; RESP 16; TEMP 36.1; O2SAT 99
[2025-07-26 04:00] VITALS: BP 111/71; PULSE 58; PULSE 60; RESP 19; TEMP 36.3; O2SAT 97
[2025-07-26 05:29] LABS: Basophils # (Auto) 0.0 Thou/mm3 (0.0-0.2); Basophils % (Auto) 1 % (0-2.5); Eosinophils # (Auto) 0.0 Thou/mm3 (0.0-0.5); Eosinophils % (Auto) 1 % (0-10); Hematocrit 30.8 % (36.0-46.0); Hemoglobin 10.4 g/dL (12.0-16.0); Immature Granulocytes Auto 0.07 Thou/mm3 (0.00-0.00); Lymphocytes # (Auto) 0.8 Thou/mm3 (1.0-4.8); Lymphocytes % (Auto) 17 % (10-50); Mean Corpuscular HGB Conc 33.8 g/dl (31.0-37.0); Mean Corpuscular Hemoglobin 27.7 pg (25.0-35.0); Mean Corpuscular Volume 82 fL (80-100); Monocytes # (Auto) 0.5 Thou/mm3 (0.0-0.8); Monocytes % (Auto) 10 % (0-12); Neutrophils # (Auto) 3.4 Thou/mm3 (1.8-7.7); Neutrophils % (Auto) 71 % (37-80); Nucleated Red Blood Cell # 0.00 Thou/mm3 (0.00-0.00); Nucleated Red Blood Cell % 0 /100 WBC (0); Platelet Count 176 Thou/mm3 (140-440); RDW Standard Deviation 38.5 fL (36.4-46.3); Red Blood Count 3.76 Miln/mm3 (4.00-5.20); White Blood Count 4.8 Thou/mm3 (3.6-11.0)
[2025-07-26 06:26] LABS: Alanine Aminotransferase < 7 U/L (10-49); Albumin, Serum 3.7 gm/dL (3.5-5.0); Albumin/Globulin Ratio 1.8 (1.2-2.2); Alkaline Phosphatase 43 U/L (46-116); Anion Gap 10 (7-16); Aspartate Amino Transferase 11 U/L (0-34); BUN/Creatinine Ratio 6 Ratio (12-20); Bilirubin,Total 0.3 mg/dL (0.3-1.2); Blood Urea Nitrogen < 5 mg/dL (9-23); Calcium 8.7 mg/dL (8.3-10.6); Calcium (Corrected) 8.9 mg/dL (8.5-10.1); Carbon Dioxide 26.5 mMol/L (20.0-31.0); Chloride 101 mMol/L (98-107); Creatinine (Component) 0.8 mg/dL (0.6-1.3); Estimated Creatinine Clearance 85.8 mL/min (>60); Globulin 2.1 gm/dL (2.3-3.5); Glucose 92 mg/dL (74-106); Osmolality,Calculated 271 (275-295); Potassium 4.1 mMol/L (3.4-5.1); Sodium 137 mMol/L (136-145); Total Protein 5.8 gm/dL (5.7-8.2); eGFR > 60 See Note
[2025-07-26 06:34] VITALS: PULSE 65; RESP 16; RESP 98
[2025-07-26 08:00] VITALS: BP 118/85; PULSE 59; PULSE 71; RESP 16; TEMP 36.5; O2SAT 98
--- NOTE | 2025-07-26 09:18 | ESDS_ITS ---
<Statement entered by Rowdy Gary MD - 07/26/25 14:55> Patient was seen and evaluated at bedside this morning. No acute overnight events. Per neurology patient did not require acyclovir at this time. Patient today did complain of some pain while performing left upper gaze, but neurology stated that this was usually seen after lumbar punctures. Patient was still complaining of low appetite, but stated that she was feeling a little bit better today than previous days. At this time patient is stable enough to be discharged home with close follow-up with primary care physician and neurology. At this time patient stable enough to be discharged home. General: A/O x3, no acute distress, ill appearing Eyes: PERRL, EOMI. Anicteric, vision grossly intact. Ears: No ear pain, no ear discharge, Hearing grossly intact. Nose: No nasal discharge. Mouth/Throat: Moist mucous membranes, no redness, no lesions. Neck: Neck supple, non-tender, no cervical lymphadenopathy. Lungs: Clear CHRIS to auscultation and percussion, No accessory muscle use. Cardio: Normal S1/S2, regular rhythm, no murmurs, no JVD or carotid bruits. Abdomen: Soft, non-tender, no palpable masses, peristalsis present, no guarding or rebound. Extremities: Symmetrical, no significant deformities, no peripheral edema , non-tender, peripheral pulses presents. Skin: No rashes, no lesions, warm to touch. Neuro: No focal neurological deficits. Psych: Cooperative, appropriate mood and effect. Note reviewed and agree with medical student's care plan as documented except as noted above. Case disclosed with attending Dr. Flavio Gary PGY2 Disclaimer: Even though this this note was dictated by speech recognition and even though it was carefully revised there may still be minor errors in unloading checker due to voice recognition software. Planned Discharge Date 07/26/25 DS: Providers Provider Date of admission: 07/22/25 18:31 Primary care physician: Xochilt Young NP Admitting Provider: Lainey Bardales MD Attending Provider on Admission: Andrei Muniz MD Consults: 07/22/25 18:34 Consult to Neurology / Tele-Neurology Stat Comment: Consulting Provider: Otto Huddleston Attending Provider on DC: Derian Sears JudahStudesheila Discharging Provider: Rosalinda Christianson DS: Diagnosis Problem List Completed Was Problem List Reviewed/Reconciled?: Yes Hospital Course Hospital Course Hospital course: 24-year-old female with no significant past medical history presented to the ED on 07/22/2025 with 6 days of throbbing headaches, nausea, vomiting, fevers, and neck pain. She also reported double vision that started the day of presentation. She tried ibuprofen at home with little relief. She denied recent travel. Her mother recently had COVID. In the ED she was febrile to highest 102 degrees. Labs showed leukocytosis and anemia, urine showed protein, ketones, blood, bacteria. Imaging was noncontributory, and LP showed elevated CSF protein w/ normal glucose. CSF and blood were sent for culture, empiric antibiotics and acyclovir were started, maintenance fluids were administered and she was admitted for suspected aseptic meningitis. Neurology was consulted who agreed with aseptic meningitis and recommended empiric abx and acyclovir to be adjusted per culture results. The pt became febrile overnight once again 07/23/25 to 103 highest but normalized with tylenol. Notably, pt endorsed continuous nausea and loss of appetite this admission that were resistant to anti-emetics and she consumed very few foods and fluids. When the patient stood at night she developed sinus tachycardia to the 170s though she endorsed no symptoms at this time. This occurred once more the following night to 150s HR and orthostatic vitals were collected which were borderline but negative. It was concluded that the patient developed postural orthostatic tachycardia secondary to hypovolemia from poor oral intake, she was administered a fluid bolus with good effect. Antibiotics were discontinued 07/25/25 as CSF and blood cultures showed no bacterial growth. Leukocytosis present on admission resolved and Hgb uptrended. On discharge the patient is ambulatory, hemodynamically stable, afebrile for 2 days and nights but still endorses headache, lack of appetite, EOM pain that is attributed to lumbar puncture side effect. She is discharged with no new medications, home sertraline 50mgPO and risperidone 0.5mgPO, and instructions to follow up with PCP for viral panel results as well as follow up with Neurology outpatient regarding recovery. Discharge Plan: Follow-up with primary care physician within 5 days upon discharge Follow-up with neurology within 5 to 7 days upon discharge Follow-up with your primary care physician about CSF [place] pending labs. Continue taking all other home medications as prescribed. Please come back to the ER if symptoms persist or worsen or if you develop new onset fevers. Problem List #Acute encephalopathy secondary to #Meningitis #Leukocytosis (resolved) #Sinus tachycardia #?POTS #Possible depression #Possible bipolar #Chronic normocytic anemia #Hyponatremia (resolved) #Hypokalemia (resolved) #Hypochloremia (resolved) ----- Plan discussed with attending physician Dr. Flavio Sears, Medical Student [id number] Time Spent with Patient Time attestation: Total time spent providing and/or coordinating discharge services: Time spent: Greater than 30 minutes Exam Vital Signs Temp Pulse Resp BP Pulse Ox O2 Del Method 97.7 F 71 16 118/85 H 98 Room Air 07/26/25 08:00 07/26/25 08:00 07/26/25 08:00 07/26/25 08:00 07/26/25 08:00 07/26/25 08:00 Discharge Plan Plan Patient Disposition: HOME (Self Care) Care Plan Goals: Follow-up with primary care physician within 5 days upon discharge Follow-up with neurology within 5 to 7 days upon discharge Follow-up with your primary care physician about CSF [place] pending labs. Continue taking all other home medications as prescribed. Please come back to the ER if symptoms persist or worsen or if you develop new onset fevers. Prescriptions/Referrals Prescriptions/Med Rec: Continued risperidone 0.5 mg tablet 0.5 mg PO HS Patient Comments: TAKE 1 TABLET BY MOUTH AT BEDTIME sertraline 50 mg tablet 50 mg PO HS Referrals: [facility] [Outside] Xochilt Young NP [Primary Care Provider] Otto Huddleston MD [Physician, Neurology] Patient/Caregiver Discharge Instructions Other Discharge Activity Instructions:: Follow-up with primary care physician within 5 days upon discharge Follow-up with neurology within 5 to 7 days upon discharge Follow-up with your primary care physician about CSF [place] pending labs. Continue taking all other home medications as prescribed. Please come back to the ER if symptoms persist or worsen or if you develop new onset fevers. Education Materials: Meningitis Print Language: Uzbek Stand Alone Forms: Tg Award Info., Patient Portal Info Letter Discharge Order Discharge Orders: Discharge (Routine); Ordered 07/26/25 Ordered By: Rowdy Gary Quality Discharge Quality Measures none MD Attestestation MD Attestation I have examined the patient, reviewed labs and imaging findings, discussed the case with the resident(s), and reviewed entered orders. I agree with the plan of care as outlined in this note. Time Spent: [address] Flavio MD
--- NOTE | 2025-07-26 11:23 | PC.PT ---
Patient was approached for PT eval at 10:25. Patient has been ambulatory without assistance per SIRISHA Starr. RN noted patient had mild tremors and reported slight dizziness with ambulation. PT watched patient ambulate to the bathroom and around her room slowly but xI with minimal dizziness and slight tremors. Patient's parents were at bedside and stated patient has great family support at home. Patient is young and normally xI with ambulation and ADLs at baseline. Patient is ambulatory and is safe to D/C home with no further needs. Will cancel PT evaluation. RN made aware.
[2025-07-26 12:00] VITALS: BP 121/82; PULSE 60; RESP 16; TEMP 36.2; O2SAT 99
[2025-08-08 17:50] LABS: HSV-1 DNA, CSF NOT DETECTED copies/mL; HSV-1 DNA, CSF Source CEREBROSPINAL FLUID
[2025-08-09 06:34] LABS: HSV-2 DNA, CSF NOT DETECTED copies/mL
== END 2025-07-26 12:15 | disposition home or self-care (01) | DRG 51 ==
LOC: SERX 12:47 → SERHOLD 18:46 → S3NX 21:35 → S2NX 07-24 18:22
PROVIDERS: Admitting Provider Student in an Organized Health Care Education/Training Program; Emergency Provider Emergency Medicine; PCP Nurse Practitioner Family; Visit Provider Student in an Organized Health Care Education/Training Program
DX: A87.9 Viral meningitis, unspecified (principal); G93.40 Encephalopathy, unspecified; H53.2 Diplopia; D64.89 Other specified anemias; E87.1 Hypo-osmolality and hyponatremia; E87.6 Hypokalemia; E87.8 Other disorders of electrolyte and fluid balance, not elsewhere classified; F32.A Depression, unspecified; E86.1 Hypovolemia; G90.A Postural orthostatic tachycardia syndrome [POTS]
CPT/HCPCS: 36415; 70450; 71045; 80053; 80202; 80307; 81001; 82728; 82945; 83540; 83605; 83735; 84100; 84145; 84157; 84703; 85025; 85610; 86171; 86788; 86789; 87040; 87070; 87205; 87502; 87530; 87811; 89051; 93005; 93225; 96361; 96365; 96366; 96375; 99284; A4649; J0131; J0133; J0696; J2405; J2765; J3370; J3373; J3475; J7030; J7050; J7120; J7999; A9270